=== PATIENT | male | born 2000 | race Caucasian/White ===

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

== ENCOUNTER 2021-05-03 16:31 | Outpatient (REF) | payer OTHER, MEDICAID, SELFPAY ==
[2021-05-03 17:01] LABS: MANUAL DIFF FLAG NO
[2021-05-03 17:28] LABS: Basophils Absolute Auto 0.1 X10*3/uL (0.0-0.2); Basophils Percent Auto 0.5 % (0-2); Eosinophils Percent Auto 0.2 % (0-4); Hematocrit 49.8 % (42-52); Imm Gran Abs Auto 0.01 X10*3/uL (0.00-0.03); Imm Gran Pct Auto 0.1 % (0.0-0.4); Lymphocytes Absolute Auto 2.4 X10*3/uL (1.2-4.9); Mean Corpuscular HGB Conc 34.1 g/dl (31.0-36.0); Mean Corpuscular Hemoglobin 28.8 pg (27.0-33.0); Mean Corpuscular Volume 84.3 fL (80-98); Monocytes Absolute Auto 0.6 X10*3/uL (0.1-1.2); Monocytes Percent Auto 6.1 % (2-11); Neutrophils Absolute Auto 6.8 X10*3/uL (2.0-8.3); Neutrophils Percent Auto 69.1 % (45-73); Platelet Count 346 X10*3/uL (160-400); Red Blood Count 5.91 X10*6/uL (4.60-5.80); Red Cell Distribution Width 11.1 % (11.0-16.0); White Blood Count 9.9 X10*3/uL (4.8-10.8)
[2021-05-03 18:15] LABS: Alanine Aminotransferase 22 U/L (0-40); Albumin Level 5.3 g/dL (3.5-5.0); Alkaline Phosphatase 90 U/L (39-117); Anion Gap 16 (12-20); Aspartate Amino Transferase 23 U/L (5-37); Blood Urea Nitrogen 21 mg/dL (9-16); C Reactive Protein 0.02 mg/dL (< or = 0.50); Calcium 10.8 mg/dL (8.4-10.2); Carbon Dioxide 26 mmol/L (22-29); Chloride 104 mmol/L (96-108); Estimated Glomerular Filt Rate > 60; Glucose Random 80 mg/dL (60-115); Potassium 4.6 mmol/L (3.3-5.1); Sodium 141 mmol/L (135-145)
[2021-05-03 18:23] LABS: Erythrocyte Sedimentation Rate 1 MM/HR (0-15)
[2021-05-03 18:25] LABS: Free T4 (Free Thyroxine) 1.21 ng/dL (0.71-1.85); Thyroid Stimulating Hormone 1.61 uIU/mL (0.32-4.0)
== END 2021-05-03 16:32 | disposition home or self-care (01) ==
LOC: HO.LAB 16:31
PROVIDERS: PCP Pediatrics; Visit Provider Pediatrics
DX: D64.9 Anemia, unspecified (principal)
CPT/HCPCS: 36415; 80053; 84439; 84443; 85025; 85652; 86140

== ENCOUNTER 2021-06-01 12:50 | Emergency (ER) | payer OTHER, MEDICAID, SELFPAY ==
--- NOTE | ~2021-06-01 | CT_ITS ---
EXAMINATION: CT ABDOMEN AND PELVIS WITH CONTRAST CLINICAL INFORMATION: Right lower quadrant abdominal pain COMPARISON: None TECHNIQUE: Multidetector volumetric images were obtained from the superior aspect of the liver through the pubic symphysis following administration 85 mL of Omnipaque 350 intravenous contrast. Sagittal and coronal reformatted images were obtained on the technologist's workstation. Oral contrast: No This CT examination was performed using dose optimization techniques as appropriate, variously including the following: *Automated exposure control *Adjustment of mA and/or kV according to patient size (this includes techniques or standardized protocols for targeted exams where dose is matched to indication/reason for exam; i.e. extremities or head) *Use of iterative reconstruction technique DLP: 330 mGy-cm FINDINGS: LUNG BASES: The visualized lung bases are unremarkable. LIVER, GALLBLADDER, AND BILIARY TREE: The liver is normal in size, shape, and attenuation. No focal hepatic lesion or biliary ductal dilatation is present. The gallbladder is unremarkable with no evidence of radiopaque gallstones, gallbladder wall thickening, or obvious pericholecystic inflammatory changes. PANCREAS: Unremarkable. SPLEEN: Unremarkable. ADRENAL GLANDS: Unremarkable. KIDNEYS AND URETERS: The kidneys are normal in size, shape, and attenuation. No hydronephrosis, hydroureter, or calculi seen. No perinephric stranding. BLADDER: Completely emptying cannot be evaluated. No stones are seen. GASTROINTESTINAL TRACT: Diverticular changes are present in the colon without diverticulitis. The small and large bowel are unremarkable. The appendix is unremarkable. ABDOMINAL WALL: No significant hernia is appreciated. LYMPH NODES: No retroperitoneal lymphadenopathy. VASCULAR: Unremarkable. PELVIC VISCERA: Unremarkable. OSSEOUS STRUCTURES: Unremarkable. CT/CT abdomen pelvis w con IMPRESSION: A cause for the patient's acute right lower quadrant pain has not been found. The appendix appears entirely normal. Colonic diverticula are present without diverticulitis.
[2021-06-01 12:55] VITALS: BP 143/81; PULSE 72; O2SAT 99
[2021-06-01 13:48] VITALS: BP 155/70; PULSE 67; RESP 18; TEMP 36.6; O2SAT 98; BMI 17.7
[2021-06-01 14:00] LABS: MANUAL DIFF FLAG NO
[2021-06-01 14:05] LABS: Basophils Percent Auto 0.4 % (0-2); Eosinophils Percent Auto 0.4 % (0-4); Hematocrit 45.6 % (42.0-52.0); Hemoglobin 15.2 g/dl (14.0-18.0); Imm Gran Abs Auto 0.01 X10*3/uL (0.00-0.03); Imm Gran Pct Auto 0.1 % (0.0-0.4); Lymphocytes Absolute Auto 1.7 X10*3/uL (1.2-4.9); Lymphocytes Percent Auto 17.9 % (20-40); Mean Corpuscular HGB Conc 33.3 g/dl (31.0-36.0); Mean Corpuscular Volume 86.9 fL (80.0-98.0); Mean Platelet Volume 8.5 fL (9.4-12.4); Monocytes Absolute Auto 0.7 X10*3/uL (0.1-1.2); Monocytes Percent Auto 7.2 % (2-11); Neutrophils Absolute Auto 6.9 x10*3/uL (2.0-8.3); Platelet Count 270 X10*3/uL (160-400); Red Blood Count 5.25 X10*6/uL (4.60-5.80); Red Cell Distribution Width 11.6 % (11.0-16.0); White Blood Count 9.3 X10*3/uL (4.8-10.8)
[2021-06-01 14:25] LABS: Alanine Aminotransferase 20 U/L (0-40); Albumin Level 4.8 g/dL (3.5-5.0); Alkaline Phosphatase 73 U/L (39-117); Anion Gap 13 (12-20); Aspartate Amino Transferase 19 U/L (5-37); Bilirubin Total 0.9 mg/dL (0.0-1.0); Blood Urea Nitrogen 19 mg/dL (9-16); Carbon Dioxide 25 mmol/L (22-29); Chloride 106 mmol/L (96-108); Creatinine Clr Calc Pharmacy 91.4; Estimated Glomerular Filt Rate > 60; Glucose Random 96 mg/dL (60-115); Lipase 39 U/L (8-78); Potassium 3.9 mmol/L (3.3-5.1); Sodium 140 mmol/L (135-145); Total Protein 7.4 g/dL (6.5-8.0)
[2021-06-01 16:42] VITALS: BP 136/74; PULSE 70; RESP 16; TEMP 36.6; O2SAT 97
--- NOTE | 2021-06-01 18:36 | ED.ABDPAIN ---
HPI - Abdominal Pain General Chief Complaint: Abdominal Pain Stated Complaint: RLQ PAIN Time Seen by Provider: 06/01/21 12:55 Source: patient Mode of arrival: ambulatory Limitations: no limitations History of Present Illness HPI narrative: RT lower quadrant abdominal pain since Yesterday,denies vomiting and diarrhea MD elicited complaint: abdominal pain Pertinent past history: none Onset (ago): day(s) (1) Pain Consistency: constant Location: RLQ Severity: moderate Quality: cramping Radiation: none Migration to: no migration Associated symptoms: denies other symptoms Related Data Allergies Allergy/AdvReac Type Severity Reaction Status Date / Time No Known Allergies Allergy Verified 06/01/21 18:39 Review of Systems Review of Systems Yes all other systems are reviewed and are negative Constitutional: Reports no additional constitutional complaints Reports system reviewed and no additional complaints, except as documented Cardiovascular: Reports no additional cardiovascular complaints Respiratory: Reports no additional respiratory complaints Gastrointestinal: Denies hematochezia, Denies constipation, Denies diarrhea and Denies loose stools Physical Exam Vital Signs: Vital Signs: Last Vital Signs Temp 99.6 F 06/01/21 18:41 Pulse 151 H 06/01/21 18:41 Resp 34 H 06/01/21 18:41 BP 120/78 06/01/21 18:41 Pulse Ox 98 06/01/21 18:41 Body Mass Index 17.7 Const: General: cooperative, well developed, alert and awake Nutritional Appearance: average body habitus Orientation/consciousness: patient oriented x3 HENMT: Head: Yes normal to inspection Face and sinus: Yes normal facial exam Mouth: Normal oral and palatal mucosa present Throat: Yes posterior oropharynx normal Neck: Neck: Yes normal visual inspection, Yes full ROM and Yes no lymphadenopathy Chest: Chest palpation & inspection: normal inspection of the chest Resp: Effort & Inspection: normal respiratory effort Auscultation: clear to auscultation bilaterally Cardio: Jugular venous distension: no JVD Rate: regular rate Rhythm: regular rhythm GI: Inspection: Yes normal to inspection Palpation (GI): Soft to palpation, not firm, Tenderness to palpation present (GI) in the RLQ and no guarding Skin: General skin exam: no rashes or lesions noted, elasticity normal and turgor normal Rashes: no rashes Wounds: no wounds Neuro: General: patient oriented x3 Cranial nerves: Yes CN's II-XII intact bilaterally Course Reevaluation(s) Reevaluation #1: feels much better ct scan negative OK to d/c home MDM - Abdominal Pain Lab Data Result diagrams: 06/01/21 13:53 06/01/21 13:53 Labs: Lab Results 06/01/21 06/01/21 06/01/21 Range/Units 13:53 13:53 19:15 WBC 9.3 (4.8-10.8) X10*3/uL RBC 5.25 (4.60-5.80) X10*6/uL Hgb 15.2 (14.0-18.0) g/dl Hct 45.6 (42.0-52.0) % MCV 86.9 (80.0-98.0) fL MCH 29.0 (27.0-33.0) pg MCHC 33.3 (31.0-36.0) g/dl RDW 11.6 (11.0-16.0) % Plt Count 270 (160-400) X10*3/uL MPV 8.5 L (9.4-12.4) fL Immature Gran % (Auto) 0.1 (0.0-0.4) % Neut % (Auto) 74.0 H (45-73) % Lymph % (Auto) 17.9 L (20-40) % [place] % (Auto) 7.2 (2-11) % Eos % (Auto) 0.4 (0-4) % Baso % (Auto) 0.4 (0-2) % Lymph # (Auto) 1.7 (1.2-4.9) X10*3/uL [place] # (Auto) 0.7 (0.1-1.2) X10*3/uL Eos # (Auto) 0.0 (0.0-0.4) X10*3/uL Baso # (Auto) 0.0 (0.0-0.2) X10*3/uL Abs Immat Gran (auto) 0.01 (0.00-0.03) X10*3/uL Absolute Neuts (auto) 6.9 (2.0-8.3) x10*3/uL Absolute Nucleated RBC 0.000 (0.0-0.012) X10*3/uL Nucleated RBC % (auto) 0.0 (0.0-0.2) /100WBC Sodium 140 (135-145) mmol/L Potassium 3.9 (3.3-5.1) mmol/L Chloride 106 (96-108) mmol/L Carbon Dioxide 25 (22-29) mmol/L Anion Gap 13 (12-20) BUN 19 H (9-16) mg/dL Creatinine 1.00 (0.5-1.4) mg/dL Estim Creat Clear Calc 91.4 Estimated GFR > 60 Random Glucose 96 (60-115) mg/dL Calcium 10.0 D (8.4-10.2) mg/dL Total Bilirubin 0.9 (0.0-1.0) mg/dL AST 19 (5-37) U/L ALT 20 (0-40) U/L Alkaline Phosphatase 73 (39-117) U/L Total Protein 7.4 (6.5-8.0) g/dL Albumin 4.8 (3.5-5.0) g/dL Lipase 39 (8-78) U/L Urine Color YELLOW Urine Appearance CLEAR Urine pH 7.0 (5.0-8.0) Ur Specific [place] 1.020 (1.005-1.025) Urine Protein NEG (NEG-TRACE) MG/DL Urine Glucose (UA) NEG (NEG) MG/DL Urine Ketones 15 (NEG) MG/DL Urine Blood NEG (NEG) Urine Nitrite NEG (NEG) Ur Leukocyte Esterase NEG (NEG) Imaging Data CT scan - abdomen: Attestation: I personally reviewed and interpreted this imaging study as follows: Radiologist's impression: stones are seen.? GASTROINTESTINAL TRACT: Diverticular changes are present in the colon without diverticulitis. The small and large bowel are unremarkable. The appendix is unremarkable.? ABDOMINAL WALL: No significant hernia is appreciated.? LYMPH NODES: No retroperitoneal lymphadenopathy. VASCULAR: Unremarkable. PELVIC VISCERA: Unremarkable.? OSSEOUS STRUCTURES: Unremarkable.? CT/CT abdomen pelvis w con IMPRESSION: A cause for the patient's acute right lower quadrant pain has not been found. The appendix appears entirely normal. Colonic diverticula are present without diverticulitis.? Dictated By: FABIO IRVING MD Signed By: <Electronically signed by FABIO IRVING MD in OV> 06/01/212009 Discharge Plan Discharge Clinical Impression: Abdominal pain Patient Disposition: Home, Self-Care Instructions: Abdominal Pain (ED) PMFSH Social History Social History Advance Directives: No Advance Directives Information Provided: No
[2021-06-01 18:41] VITALS: BP 120/78; PULSE 151; RESP 34; TEMP 37.6; O2SAT 98
--- NOTE | 2021-06-01 19:24 | PC.NURSE ---
PT HAD EPISODE OF ANXIETY AFTER SPEAKING WITH MD. PT WAS INSTRUCTED TO BREATH THREW NOSE OUT THREW MOUTH ICE PACK TO BACK OF NECK AND ANXIETY RESOLVE. PT STATE HE HAS ALOT
[2021-06-01 19:25] LABS: Appearance Urine CLEAR; Color Urine YELLOW; Glucose Urine UA NEG (NEG); Leukocyte Esterase Urine NEG (NEG); Nitrite Urine NEG (NEG); Urine Blood NEG (NEG); Urine Ketones 15 MG/DL (NEG); Urine Protein NEG (NEG-TRACE)
[2021-06-01] MEDS: iohexoL 350 MG/ML 100 ML INFUS..BTL IV (19:29)
[2021-06-01] MEDS: 0.9 % Sodium Chloride 1,000 ML 999 ML IVCONT (19:42)
[2021-06-01] MEDS: Ketorolac Tromethamine 15 MG/ML VIAL IVPUSH (19:42)
== END 2021-06-01 20:34 | disposition home or self-care (01) ==
PROVIDERS: Emergency Medicine; Emergency Provider Emergency Medicine; PCP Pediatrics
DX: R10.31 Right lower quadrant pain (principal); Z79.899 Other long term (current) drug therapy
CPT/HCPCS: 36415; 74177; 80053; 81003; 83690; 85025; 96361; 96374; 99284; J1885; Q9967

== ENCOUNTER 2021-06-15 15:17 | Emergency (ER) | payer OTHER, MEDICAID, SELFPAY ==
--- NOTE | 2021-06-15 | ECG_ITS ---
Test Reason : ANXIETY Blood Pressure : / mmHG Vent. Rate : 110 BPM Atrial Rate : 110 BPM P-R Int : 120 ms QRS Dur : 098 ms QT Int : 314 ms P-R-T Axes : 076 082 057 degrees QTc Int : 424 ms Sinus tachycardia Right atrial enlargement Borderline ECG No previous ECGs available Referred By: Generic ED Physician Electronically Signed By:AMRIK LEARY MD
--- NOTE | ~2021-06-15 | XR_ITS ---
EXAMINATION: XR CHEST CLINICAL INFORMATION: Chest pain COMPARISON: None TECHNIQUE: 2 views of the chest were obtained. FINDINGS: The cardiac and mediastinal contours are normal. The lungs are well inflated. The lungs are clear. There is no pleural effusion or pneumothorax. Bony structures are unremarkable. XR/XR chest 2V IMPRESSION: Well-inflated lungs. No evidence for acute disease in the chest.
[2021-06-15 15:31] VITALS: BP 177/109; PULSE 120; RESP 18; TEMP 37.3; O2SAT 95; BMI 17.7
[2021-06-15 15:52] LABS: MANUAL DIFF FLAG NO
[2021-06-15 15:53] LABS: Basophils Percent Auto 0.4 % (0-2); Eosinophils Percent Auto 0.4 % (0-4); Hematocrit 45.7 % (42.0-52.0); Hemoglobin 15.7 g/dl (14.0-18.0); Imm Gran Abs Auto 0.01 X10*3/uL (0.00-0.03); Imm Gran Pct Auto 0.1 % (0.0-0.4); Lymphocytes Absolute Auto 2.4 X10*3/uL (1.2-4.9); Lymphocytes Percent Auto 29.2 % (20-40); Mean Corpuscular HGB Conc 34.4 g/dl (31.0-36.0); Mean Corpuscular Hemoglobin 28.9 pg (27.0-33.0); Mean Platelet Volume 8.6 fL (9.4-12.4); Monocytes Absolute Auto 0.6 X10*3/uL (0.1-1.2); Monocytes Percent Auto 6.8 % (2-11); Neutrophils Absolute Auto 5.2 x10*3/uL (2.0-8.3); Neutrophils Percent Auto 63.1 % (45-73); Platelet Count 345 X10*3/uL (160-400); Red Blood Count 5.44 X10*6/uL (4.60-5.80); Red Cell Distribution Width 11.5 % (11.0-16.0); White Blood Count 8.3 X10*3/uL (4.8-10.8)
[2021-06-15 16:11] LABS: Prothrombin Time 11.5 SEC (9.9-13.0)
[2021-06-15 16:13] LABS: Partial Thromboplastin Time 29.4 SEC (24.1-38.0)
[2021-06-15 16:14] LABS: D Dimer High Sensitivity < 150 NG/ML
[2021-06-15 16:15] LABS: COVID-19 Test Negative (Negative)
[2021-06-15 16:16] LABS: Troponin-I High Sensitivity < 3.5 ng/L (<3.5-35.0)
[2021-06-15 16:17] LABS: Anion Gap 20 (12-20); Blood Urea Nitrogen 18 mg/dL (9-16); Calcium 10.7 mg/dL (8.4-10.2); Carbon Dioxide 18 mmol/L (22-29); Chloride 104 mmol/L (96-108); Creatinine Clr Calc Pharmacy 81.6; Estimated Glomerular Filt Rate > 60; Glucose Random 132 mg/dL (60-115); Potassium 3.7 mmol/L (3.3-5.1); Sodium 138 mmol/L (135-145)
--- NOTE | 2021-06-15 18:14 | ED_ITS ---
HPI - Chest Pain General Chief Complaint: Chest Pain Stated Complaint: chest pain, diff breath Time Seen by Provider: 06/15/21 18:14 Source: patient Mode of arrival: ambulatory History of Present Illness HPI narrative: 20-year-old male who presents emergency department for evaluation of left-sided pleuritic chest pain. The patient states that the pain started yesterday. He states that the pain came on suddenly. The pain is intermittent. He describes the pain as a sharp pain and he points to his left anterior chest when asked to localize the pain. The pain is worse with breathing worse with lying down flat. States that the pain is 8/10 at its worst and is currently 2/10 here in the emergency department. Patient states that he has had rhinorrhea and a cough which is occasionally productive of green mucus. He states he is feeling weak and fatigued. He denied shortness of breath or dyspnea on exertion. The patient did not take any medications for the pain prior to coming to the emergency department. Patient also states that he has severe anxiety and he believes that the chest pain is making very anxious. Related Data Allergies Allergy/AdvReac Type Severity Reaction Status Date / Time No Known Allergies Allergy Verified 06/15/21 15:31 Review of Systems Review of Systems: Yes all other systems are reviewed and are negative [facility] Past Medical History [facility] Narrative: Past medical history: Asthma, anxiety and anemia. Past surgical history: None. Social history: He denies tobacco and alcohol use. He occasionally smokes marijuana. Social History Social History Advance Directives: No Advance Directives Information Provided: No Physical Exam Vital Signs: Vital Signs: Last Vital Signs Temp 98.3 F 06/15/21 18:20 Pulse 108 H 06/15/21 18:20 Resp 30 H 06/15/21 18:20 BP 137/72 06/15/21 18:20 Pulse Ox 100 06/15/21 18:20 Body Mass Index 17.7 Const: General: cooperative and no acute distress Orientation/consciousness: oriented to person and oriented to place Limitations: no limitations HENMT: Head: Yes normal to inspection, Yes normocephalic and Yes atraumatic Ears: external ears normal General nose exam: Normal external nose present Face and sinus: Yes normal facial exam Mouth: Normal oral and palatal mucosa present Throat: Yes posterior oropharynx normal Eyes: General: appearance normal, both eyes and all related structures Pupils: Equal, round and reactive pupils present Neck: Neck: Yes normal visual inspection, Yes no lymphadenopathy, Yes trachea midline and Yes supple Chest: Chest palpation & inspection: normal inspection of the chest and normal palpation of entire chest wall Resp: Effort & Inspection: normal respiratory effort and able to speak in complete sentences Auscultation: clear to auscultation bilaterally Cardio: Rate: regular rate Rhythm: regular rhythm Heart sounds: S1 normal heart sound present, S2 normal heart sound present and no murmurs GI: Inspection: Yes normal to inspection Palpation (GI): Soft to palpation, nontender and no guarding Auscultation: normal bowel sounds : General: Yes no CVA tenderness Back/Spine/Pelvis: Back: no CVA tenderness Skin: General skin exam: no rashes or lesions noted Neuro: General: oriented to person and oriented to place Cranial nerves: Yes CN's II-XII intact bilaterally and Yes Equal, round and reactive pupils present Cognition (Neuro): normal cognition Motor exam (neuro): 5/5 motor strength present throughout Extrem: General: Yes normal to inspection Psych: Appearance: grossly normal Speech and movement: Normal speech and movement present Affect: normal affect Attitude: cooperative Thought process: Normal thought process present Thought content: Normal thought content present Course Course Course Narrative: 20-year-old male who presents emergency department for evaluation of left-sided pleuritic chest pain. Initial vital signs revealed an elevated blood pressure of 177/109, repeat blood pressure was 137/72. Patient was initially tachycardic with a pulse of 120. Had a normal respiratory rate of 18. O2 saturation was 95% on room air. Physical examination was unremarkable. The patient had a 12 EKG which revealed a sinus tachycardia with no evidence for pericarditis or myocardial injury. The patient's CBC was normal. CMP revealed a slight elevated glucose of 132. Troponin was below detectable limits. D- dimer was below detectable limits. Chest x-ray was negative. COVID-19 was negative. Patient's presentation is consistent with acute pleurisy most likely caused by viral illness I did discuss this with him. Patient was treated with ibuprofen 600 mg orally. He was advised to take ibuprofen and Tylenol for the next 3 days. He was given printed and verbal instructions and discharged home. MDM - Chest Pain Lab Data Result diagrams: 11/30/21 15:46 06/15/21 15:45 Labs: Lab Results 06/15/21 06/15/21 06/15/21 Range/Units 15:45 15:45 15:45 WBC (4.8-10.8) X10*3/uL RBC (4.60-5.80) X10*6/uL Hgb (14.0-18.0) g/dl Hct (42.0-52.0) % MCV (80.0-98.0) fL MCH (27.0-33.0) pg MCHC (31.0-36.0) g/dl RDW (11.0-16.0) % Plt Count (160-400) X10*3/uL MPV (9.4-12.4) fL Immature Gran % (Auto) (0.0-0.4) % Neut % (Auto) (45-73) % Lymph % (Auto) (20-40) % [place] % (Auto) (2-11) % Eos % (Auto) (0-4) % Baso % (Auto) (0-2) % Lymph # (Auto) (1.2-4.9) X10*3/uL [place] # (Auto) (0.1-1.2) X10*3/uL Eos # (Auto) (0.0-0.4) X10*3/uL Baso # (Auto) (0.0-0.2) X10*3/uL Abs Immat Gran (auto) (0.00-0.03) X10*3/uL Absolute Neuts (auto) (2.0-8.3) x10*3/uL Absolute Nucleated RBC (0.0-0.012) X10*3/uL Nucleated RBC % (auto) (0.0-0.2) /100WBC PT 11.5 (9.9-13.0) SEC INR 1.0 (0.9-1.1) APTT 29.4 (24.1-38.0) SEC D-Dimer High Sensitivty < 150 NG/ML Sodium 138 (135-145) mmol/L Potassium 3.7 (3.3-5.1) mmol/L Chloride 104 (96-108) mmol/L Carbon Dioxide 18 L (22-29) mmol/L Anion Gap 20 (12-20) BUN 18 H (9-16) mg/dL Creatinine 1.12 (0.5-1.4) mg/dL Estim Creat Clear Calc 81.6 Estimated GFR > 60 Random Glucose 132 H D (60-115) mg/dL Calcium 10.7 H D (8.4-10.2) mg/dL Troponin I High Sens (<3.5-35.0) ng/L COVID-19 ([facility]) (Negative) COVID-19 Clin Com 06/15/21 06/15/21 06/15/21 Range/Units 15:45 15:46 15:46 WBC 8.3 (4.8-10.8) X10*3/uL RBC 5.44 (4.60-5.80) X10*6/uL Hgb 15.7 (14.0-18.0) g/dl Hct 45.7 (42.0-52.0) % MCV 84.0 (80.0-98.0) fL MCH 28.9 (27.0-33.0) pg MCHC 34.4 (31.0-36.0) g/dl RDW 11.5 (11.0-16.0) % Plt Count 345 D (160-400) X10*3/uL MPV 8.6 L (9.4-12.4) fL Immature Gran % (Auto) 0.1 (0.0-0.4) % Neut % (Auto) 63.1 (45-73) % Lymph % (Auto) 29.2 (20-40) % [place] % (Auto) 6.8 (2-11) % Eos % (Auto) 0.4 (0-4) % Baso % (Auto) 0.4 (0-2) % Lymph # (Auto) 2.4 (1.2-4.9) X10*3/uL [place] # (Auto) 0.6 (0.1-1.2) X10*3/uL Eos # (Auto) 0.0 (0.0-0.4) X10*3/uL Baso # (Auto) 0.0 (0.0-0.2) X10*3/uL Abs Immat Gran (auto) 0.01 (0.00-0.03) X10*3/uL Absolute Neuts (auto) 5.2 (2.0-8.3) x10*3/uL Absolute Nucleated RBC 0.000 (0.0-0.012) X10*3/uL Nucleated RBC % (auto) 0.0 (0.0-0.2) /100WBC PT (9.9-13.0) SEC INR (0.9-1.1) APTT (24.1-38.0) SEC D-Dimer High Sensitivty NG/ML Sodium (135-145) mmol/L Potassium (3.3-5.1) mmol/L Chloride (96-108) mmol/L Carbon Dioxide (22-29) mmol/L Anion Gap (12-20) BUN (9-16) mg/dL Creatinine (0.5-1.4) mg/dL Estim Creat Clear Calc Estimated GFR Random Glucose (60-115) mg/dL Calcium (8.4-10.2) mg/dL Troponin I High Sens < 3.5 (<3.5-35.0) ng/L COVID-19 ([facility]) Negative (Negative) COVID-19 Clin Com See Note Discharge Plan Discharge Clinical Impression: Pleurisy Patient Disposition: Home, Self-Care Instructions: Pleurisy (ED) Additional Instructions: Your laboratory evaluation was normal which is reassuring Your chest x-ray was unremarkable. Your 12 EKG was normal. Your symptoms and presentation is consistent with pleurisy which is inflammation of the lining of the lung. The treatment for pleurisy is to take anti-inflammatory medications for the next 4 days. Take ibuprofen 200 mg pills, 3 pills every 6 hours for 4 days then as needed for pain Take Tylenol (acetaminophen) 500 mg pills, 2 pills every 4 to 6 hours as needed for pain. Follow-up with your doctor in 2 days. Please return to the emergency department if your symptoms get worse or if you develop any symptoms that are concerning to you.
[2021-06-15 18:20] VITALS: BP 137/72; PULSE 108; RESP 30; TEMP 36.8; O2SAT 100
[2021-06-15] MEDS: Ibuprofen 600 MG TABLET PO (18:47)
[2021-06-15 19:17] VITALS: BP 127/78; PULSE 68; RESP 16; O2SAT 98
--- NOTE | 2021-06-16 09:05 | ECG_ITS ---
Test Reason : ANXIETY Blood Pressure : / mmHG Vent. Rate : 118 BPM Atrial Rate : 118 BPM P-R Int : 128 ms QRS Dur : 094 ms QT Int : 298 ms P-R-T Axes : 079 084 062 degrees QTc Int : 417 ms Sinus tachycardia Right atrial enlargement Abnormal ECG When compared with ECG of 15-JUN-2021 15:28, No significant change was found Referred By: Garfield Serna Electronically Signed By:MELINDA MANRIQUE
== END 2021-06-15 19:19 | disposition home or self-care (01) ==
PROVIDERS: Emergency Provider Emergency Medicine Emergency Medical Services; PCP Pediatrics
DX: R09.1 Pleurisy (principal); Z20.822 Contact with and (suspected) exposure to COVID-19; R53.83 Other fatigue
CPT/HCPCS: 36415; 71046; 80048; 84484; 85025; 85379; 85610; 85730; 87635; 93005; 99284

== ENCOUNTER 2024-06-04 10:42 | Outpatient (REF) | payer OTHER, MEDICAID, SELFPAY ==
[2024-06-04 14:18] LABS: MANUAL DIFF FLAG NO
[2024-06-04 14:43] LABS: Basophils Percent Auto 0.8 % (0-2); Eosinophils Absolute Auto 0.1 X10*3/uL (0.0-0.4); Eosinophils Percent Auto 2.2 % (0-4); Hematocrit 46.6 % (42.0-52.0); Hemoglobin 15.4 g/dl (14.0-18.0); Imm Gran Abs Auto 0.01 X10*3/uL (0.00-0.03); Imm Gran Pct Auto 0.2 % (0.0-0.4); Lymphocytes Absolute Auto 2.5 X10*3/uL (1.2-4.9); Lymphocytes Percent Auto 49.1 % (20-40); Mean Corpuscular Hemoglobin 29.1 pg (27.0-33.0); Mean Corpuscular Volume 88.1 fL (80.0-98.0); Mean Platelet Volume 8.9 fL (9.4-12.4); Monocytes Absolute Auto 0.5 X10*3/uL (0.1-1.2); Monocytes Percent Auto 9.4 % (2-11); Neutrophils Absolute Auto 1.9 x10*3/uL (2.0-8.3); Neutrophils Percent Auto 38.3 % (45-73); Platelet Count 281 X10*3/uL (160-400); Red Blood Count 5.29 X10*6/uL (4.60-5.80); Red Cell Distribution Width 11.7 % (11.0-16.0)
[2024-06-04 16:30] LABS: Alanine Aminotransferase 27 U/L (0-40); Albumin Level 4.5 g/dL (3.5-5.0); Anion Gap 13 (12-20); Aspartate Amino Transferase 26 U/L (5-37); Bilirubin Total 0.6 mg/dL (0.0-1.0); Blood Urea Nitrogen 12 mg/dL (9-16); Calcium 9.9 mg/dL (8.4-10.2); Carbon Dioxide 28 mmol/L (22-29); Chloride 104 mmol/L (96-108); Cholesterol 184 mg/dL (<200); Estimated Glomerular Filt Rate > 60; Glucose Random 87 mg/dL (60-115); HDL Cholesterol 51 mg/dL (>40); LDL Cholesterol Calculated 112 mg/dL (<100); Potassium 4.1 mmol/L (3.3-5.1); Sodium 141 mmol/L (135-145); TSH reflex Free T4 1.37 uIU/mL (0.32-4.0); Total Protein 6.8 g/dL (6.5-8.0); Triglycerides 105 mg/dL (<150)
[2024-06-04 17:27] LABS: Alkaline Phosphatase 59 U/L (39-117)
== END 2024-06-04 10:43 | disposition home or self-care (01) ==
LOC: HO.CHCLDS 10:42
PROVIDERS: Visit Provider Internal Medicine
DX: R63.6 Underweight (principal); Z68.1 Body mass index [BMI] 19.9 or less, adult
CPT/HCPCS: 36415; 80053; 80061; 84443; 85025

== ENCOUNTER 2024-09-27 14:03 | Outpatient (REF) | payer OTHER, SELFPAY ==
[2024-09-27 15:43] LABS: Anion Gap 11 (12-20); Blood Urea Nitrogen 18 mg/dL (9-16); Calcium 10.1 mg/dL (8.4-10.2); Carbon Dioxide 28 mmol/L (22-29); Chloride 106 mmol/L (96-108); Estimated Glomerular Filt Rate > 60; Glucose Random 79 mg/dL (60-115); Potassium 3.4 mmol/L (3.3-5.1); Sodium 142 mmol/L (135-145)
--- OUTSIDE RECORDS SUMMARY | 2024-09-27 15:43 | XMS_ITS | Encounter Summary ---
Author Organization [employer] Address [address] [place] [address] Care Team Providers Care Mill Washer Name Role Phone Haile Zavaleta MD Primary Care Prov ider Reason for Visit * Reason Onset Date Comments Nurse Triage 09/19/2024 Encounter Details Date Type Department Care Team (Late st Contact Info) Description 09/19/2024 Telephone [facility] [address] [place] [address] Haile Zavaleta MD [address] [place] [address] Nurse Triage Social History Tobacco Use Types Packs/Day Years Used Date Smoking Tobacco: Never Smokeless Tobacco: Current Snuff Alcohol Use Standard Drinks/Week Comments Never 0 (1 standard drink = 0.6 oz pur e alcohol) Depression Answer Date Recorded Patient Health Questionnaire-9 Score 0 05/07/2024 Patient Health Questionnaire-9 Score 0 05/07/2024 Last PHQ-9: Questionnaire Data Not on file 1 Housing Stability Answer Date Recorded What is your housing situation today? I have rosio lloyd 04/30/[address] you li ve. Do you have problems with any of the following? None of the above 04/30/2024 Food Insecurity Answer Date Recorded Within the past 12 months, y ou worried that your food would run out before you got money to buy more: Never True 04/30/2024 Within the past 12 months,th e food you bought just didn't last and you didn't have enough money to get more: Never True Transportation Answer Date Recorded In the past 12 months, has l ack of transportation kept you from medical appts, meetings, work or from getting things needed for daily living? No 04/30/2024 Utilities Answer Date Recorded In the past 12 months, has t he electric, gas, oil or water company threatened to shut off services in your home? No 04/30/2024 Depression Answer Date Recorded Patient Health Questionnaire-2 Score 0 05/07/2024 Internet Access Answer Date Recorded Internet Access Q1 Yes 04/30/2024 Internet Access Q2 Not on file 04/30/2024 Sex and Gender Information Value Date Recorded Sex Assigned at Male 03/31/2023 5:27 PM EDT Legal Sex Female 4:18 PM EDT Gender Identity Male 03/31/2023 5:27 PM EDT Sexual Orientation Straight 04/11/2023 8: 52 AM EDT documented as of this encounter Miscellaneous Notes * Telephone Encounter - Kasie De Guzman RN - 09/20/2024 10:21 AM EST Images from the original note were not included. Call returend to Andrey Palacios, denies any worsening pain. No N/V or diarrhea. No redness, rash or swelling at site. Still denies any urinary issues. Pt offered appt for today states at work. Only available Monday or Monday. Booked for Monday with [facility] provider who had blank open slot. Reviewed home care advise, ER precautions and reasons to call back. Future Appointments Date Time Provider Department Center 09/23/2024 11:30 AM [facility] Trevino [facility] Insurance verified as active per Real Time Eligibility in [facility]. * Telephone Encounter - Diane Church - 09/20/2024 9:43 AM EST Tc from pt returning call regarding scheduling an appt . Inform is still having symptoms. * Telephone Encounter - Hoa Broderick LPN - 09/19/2024 2:47 PM EST Triage call placed to patient. Previous triage in notes from 09/16/24 did not seek [facility] evaluation. Continues with reported tightening feeling below ribs right side in his back no recent injury reports full mobility no sensation of muscle spasm no urinary pain. Reports voiding well with large volumes. Pain exacerbated only by laying down. No PCP or team appts at this time. Advised to call early Monday AM for afternoon TXC schedule availability. Provided [facility] hours for tomorrow as needed. Again advised to seek [facility] evaluation as needed with current insurance coverage. Disposition reviewed with patient in agreement with plan. No PCP or Team appts. Available at time of call. [facility] hours and availability provided for patient evaluation. Triage nurse informed the patient may have a wait of 1-2 hours because [facility] may have delays due to patient volume or symptom acuity. Insurance verified as active. Protocol Used: Flank Pain (Adult) Protocol-Based Disposition: See in Office or Video Visit within 3 Days Override (Final) Disposition: Go to Urgent Care Now Override Reason: No appointments available Positive Triage Question: * Mild pain (i.e., scale 1-3; does not interfere with normal activities) and present > 3 days * All higher-acuity triage questions were negative Care Advice Discussed: * Reasons To Call Back - Burning with urination or blood in urine - You become worse * Telephone Encounter - Seth Zelaya - 09/19/2024 2:32 PM EST Symptoms: Back Pain - Not From Injury, Hip Pain - Not From Injury Outcome: Schedule an appointment to be seen within 24 hours Reason: Caller denied all higher acuity questions The caller accepted this outcome. Contact pt at [phone] documented in this encounter Plan of Treatment Upcoming Encounters Date Type Department Care Team (Late st Contact Info) Description 10/25/2024 8:30 AM EDT Telemedicine [facility] [address] [place] [address] Haile Zavaleta MD [address] [place] [address] documented as of this encounter Visit Diagnoses Not on filedocumented in this encounter Additional Health Concerns Assessment Noted Time PHQ-9 Depression Total Score: 0 05/07/20 24 2:29 PM EDT documented as of this encounter Care Teams Mill Washer Relationship Specialty Start Date End Date Haile Zavaleta MD [address] [place] [id number] PCP - General Internal Medicine 04/11/23 documented as of this encounter
--- OUTSIDE RECORDS SUMMARY | 2024-09-27 15:43 | XMS_ITS | Encounter Summary ---
Author Organization [email or web address] Address [address] [facility] 7t [place] [address] Care Team Providers Care Certified Hyperbaric Technician Name Role Phone Haile Zavaleta MD Primary Care Prov ider Reason for Visit * Reason Onset Date Comments Nurse Triage 09/16/2024 Encounter Details Date Type Department Care Team (Late st Contact Info) Description 09/16/2024 Telephone [facility] [address] [place], [place] [phone] Haile Zavaleta MD [address] [place] [address] Nurse Triage Social History Tobacco Use Types [...] encounter Miscellaneous Notes * Telephone Encounter - Hoa Broderick LPN - 09/16/2024 10:50 AM EST Triage call returned to patient who reports that he has had a tightening type of pain in the rightmid abdomen Patient identifies that it is right sided and more to the back. Is voiding well large volumes no blood or pus noted. No fever no nausea or vomiting. No recent lifting or twisting injury.Has upright posture and reports tightening ' comes and goes and improves a bit laying on his left s mimi. Disposition reviewed with patient in agreement with plan. No PCP or Team appts. Available at time of call. [facility] hours and availability provided for patient evaluation. Triage nurseinformed the patient may have a wait of 1-2 hours because Walk In Clinic may have delays due to patient volume or symptom acuity. Insurance verified as active. Protocol Used: Abdominal Pain - Male (Adult) Protocol-Based Disposition: See in Office or Video Visit Today Video visit offer not recorded Positive Triage Questions: * Moderate pain (e.g., interferes with normal activities) that comes and goes (cramps) lasts > 24 hours (Exception: Pain with Vomiting or Diarrhea - see that Protocol.) * Patient wants to be seen * All higher-acuity triage questions were negative Care Advice Discussed: * Reasons To Call Back - Severe pain lasts over 1 hour - Constant pain lasts over 2 hours - Intermittent pains (comes and goes, cramps) lasts over 48 hours - You become worse * Telephone Encounter - Diane Church - 09/16/2024 10:29 AM EST Symptom: Abdominal Pain - Male Outcome: Schedule an appointment to be seen within 24 hours Reason: Caller denied all higher acuity questions The caller accepted this outcome. documented in this encounter Plan of Treatment Upcoming Encounters Date Type Department Care Team (Late st Contact Info) Description 10/25/2024 8:30 AM EDT Telemedicine [facility] MED & PEDS [address] [place] [address] Haile Zavaleta MD [address] [place] [address] documented as of this encounter Visit Diagnoses Not on filedocumented in this encounter Additional Health Concerns Assessment Noted Time PHQ-9 Depression Total Score: 0 05/07/20 24 2:29 PM EDT documented as of this encounter Care Teams Certified Hyperbaric Technician Relationship Specialty Start Date End Date Haile Zavaleta MD [address] [place] [address] PCP - General Internal Medicine 04/11/23 documented as of this encounter
--- OUTSIDE RECORDS SUMMARY | 2024-09-27 15:43 | XMS_ITS | Encounter Summary ---
Author Organization [employer] Address 75 [facility] 7t [place] [address] Care Team Providers Care Debt And Budget Counselor Name Role Phone Haile Zavaleta MD Primary Care Prov ider Reason for Visit * Reason Onset Date Comments New patient 03/31/2023 Encounter Details Date Type Department Care Team (Late Contact Info) Description 03/31/2023 Telephone [facility] MEDICINE [address] [place] [address] Nas Hopper MD [address] [place] [address] New patient Social History Tobacco Use Types Packs/Day Years Used Date Smoking Tobacco: Never Assessed Sex and Gender Information Value Date Recorded Sex Assigned at Male 03/31/2023 5:27 PM EDT Legal Sex Female 4:18 PM EDT Gender Identity Male 03/31/2023 5:27 PM EDT Sexual Orientation Straight 04/11/2023 8: 52 AM EDT documented as of this encounter Miscellaneous Notes * Telephone Encounter - Missy Ellison - 03/31/2023 4:21 PM EDT PAR Missy Preciado called pt to Offer PURCHASING AND FISCAL CLERK appt. Pt demographics and insurance information were verified. Pt reports the following medical conditions: Anxiety Pt is currently taking medication: No Pt given PURCHASING AND FISCAL CLERK appt with Dr. Dacosta on 04/11/2023 @ 9 am. Pt will be sent appt reminder card and medical release form and agrees to complete and to return to medical records prior to PURCHASING AND FISCAL CLERK appt. documented in this encounter Plan of Treatment Upcoming Encounters Date Type Department Care Team (Late st Contact Info) Description 10/25/2024 8:30 AM EDT Telemedicine [facility] MED & PEDS [address] [place] [address] Haile Zavaleta MD [address] [place] [address] documented as of this encounter Visit Diagnoses Not on filedocumented in this encounter Care Teams Debt And Budget Counselor Relationship Specialty Start Date End Date Haile Zavaleta MD [address] [place] [address] PCP - General Internal Medicine 04/11/23 documented as of this encounter
--- OUTSIDE RECORDS SUMMARY | 2024-09-27 15:43 | XMS_ITS | Encounter Summary ---
Author Organization [employer] Address [address] [facility] [address] 7[address] [place] [address] Care Team Providers Care Rotary Furnace Tender Name Role Phone Haile Zavaleta MD Primary Care Prov ider Reason for Visit * Reason Onset Date Comments Nurse Triage 09/27/2024 Encounter Details Date Type Department Care Team (Late st Contact Info) Description 09/27/2024 Telephone [facility] MEDICINE [address] [place] [address] Haile Zavaleta MD [address] [place] [address] Nurse Triage Social History Tobacco Use Types [...] Encounter - Kasie De Guzman RN - 09/27/2024 8:51 AM EDT Images from the original note were not included. Call returned to Andrey Palacios to triage below. Reports stopped smoking 4 days ago. Reports having bilateral arm pain, back pain, bilateral leg pain and all other joints. Per pt not sure if pain isrelated to stopped smoking. Pt denies any swelling, redness, rash or bruising of sites. Per pt feels similar to when tied to quit smoking the last time. Per pt wants to also know what smoking cessation options there are. Pt advised of disposition, agrees to sick on site today. Reviewed home care advise, ER precautions and reasons to call back. Multiple (2) protocols were used on this call. Disposition for Call: See in Office or Video Visit within 3 Days Future Appointments Date Time Provider Department Center 09/27/2024 1:30 PM Keri Candelario MD [facility] Protocol Used: Smoking - Tobacco Use and Problems (Adult) Protocol-Based Disposition: See in Office or Video Visit within 3 Days Video visit offer not recorded Positive Triage Question: * Requesting prescription medication to help quit smoking * All higher-acuity triage questions were negative Care Advice Discussed: * Quitting Smoking Protocol Used: Muscle Aches and Body Pain (Adult) Protocol-Based Disposition: See in Office or Video Visit within 3 Days Video visit offer not recorded Positive Triage Question: * Moderate pain (e.g., interferes with normal activities) and present > 3 days * All higher-acuity triage questions were negative Care Advice Discussed: * Reasons To Call Back - Fever occurs - You become worse * Telephone Encounter - Jay Mccray - 09/27/2024 8:39 AM EDT Symptoms: Body Aches, Back Pain - Not From Injury Outcome: Schedule an appointment to be seen within 3 days Reason: Caller denied all higher acuity questions The caller accepted this outcome. documented in this encounter Plan of Treatment Upcoming Encounters Date Type Department Care Team (Late st Contact Info) Description 10/25/2024 8:30 AM EDT Telemedicine [facility] MED & PEDS [address] [place] [address] Haile Zavaleta MD [address] [place] [address] documented as of this encounter Visit Diagnoses Not on filedocumented in this encounter Additional Health Concerns Assessment Noted Time PHQ-9 Depression Total Score: 0 05/07/20 24 2:29 PM EDT documented as of this encounter Care Teams Rotary Furnace Tender Relationship Specialty Start Date End Date Haile Zavaleta MD [address] [place] [address] PCP - General Internal Medicine 04/11/23 documented as of this encounter
--- OUTSIDE RECORDS SUMMARY | 2024-09-27 15:43 | XMS_ITS | Encounter Summary ---
Author Organization [employer] Address [address] [facility] 7t [place] [address] Care Team Providers Care Holistic Nutritionist Name Role Phone Haile Zavaleta MD Primary Care Prov ider Reason for Visit * Reason Onset Date Comments Nurse Triage 09/24/2024 Encounter Details Date Type Department Care Team (Late st Contact Info) Description 09/24/2024 Telephone [facility] [address] [place], [place] [phone] Haile Zavaleta MD [address] [place] [address] Nurse Triage Social History Tobacco Use Types [...] encounter Miscellaneous Notes * Telephone Encounter - Elisa Esquivel RN - 09/24/2024 9:32 AM EDT Called pt. He states he has been having strange pains on random parts of his body x few days. Crampy feeling on and off in lower abdomen, then last night had wrist pain that went up arm. Pt. States These sx have been causing my anxiety to escalate . Pt. States he is currently on Hydroxyzine and just started an inhaler for Asthma sx,. Pt. States When I'm at work all day and lifting heavy boxes, I have no pain anywhere, but, when I get home at night and have random aches on different parts of my body, It increases my anxiety and then I wake up the next morning and the pain is gone . Protocol Used: Muscle Aches and Body Pain (Adult) Protocol-Based Disposition: televisit today at 1115am. Video visit offer not recorded Positive Triage Questions: * Mild pain (e.g., does not interfere with normal activities) and present > 7 days * Muscle aches or body pains are a chronic symptom (recurrent or ongoing AND present > 4 weeks) * All higher-acuity triage questions were negative Care Advice Discussed: * Reassurance and Education - Mild Muscle Pain * Pain Medicines * Telephone Encounter - Diane Church - 09/24/2024 9:28 AM EDT Symptom: Abdominal Pain - Male Outcome: Schedule an urgent appointment (within 4 hours) or talk to a nurse or provider soon Reason: Started within the past 3 days The caller accepted this outcome. documented in this encounter Plan of Treatment Upcoming Encounters Date Type Department Care Team ([facility] st Contact Info) Description 10/25/2024 8:30 AM EDT Telemedicine [facility] MED & PEDS [address] [place] [address] Haile Zavaleta MD [address] [place] [address] documented as of this encounter Visit Diagnoses Not on filedocumented in this encounter Additional Health Concerns Assessment Noted Time PHQ-9 Depression Total Score: 0 05/07/20 24 2:29 PM EDT documented as of this encounter Care Teams Holistic Nutritionist Relationship Specialty Start Date End Date Haile Zavaleta MD [address] [place] [address] PCP - General Internal Medicine 04/11/23 documented as of this encounter
--- OUTSIDE RECORDS SUMMARY | 2024-09-27 15:43 | XMS_ITS | Encounter Summary ---
Author Organization [employer] Address 75 [facility] 7t [place] [address] Care Team Providers Care Machine Etcher Name Role Phone Haile Zavaleta MD Primary Care Prov ider Reason for Visit * Reason Onset Date Comments No Show 09/23/2024 Encounter Details Date Type Department Care Team ([facility] st Contact Info) Description 09/23/2024 Telephone [facility] [address] [place], [place] [phone] Haile Zavaleta MD [address] [place], [place] [phone] No Show Social History Tobacco Use Types Packs/Day Years [...] encounter Miscellaneous Notes * Telephone Encounter - Poonam Garduno RN - 09/23/2024 12:42 PM EDT TC to patient. He apologized for missing his appointment today d/t car problems. He stated he did not think he needed to reschedule at this time, bc he was feeling better. Reviewed with patient s/s of when to call the office and when to go to ER. Patient stated understand. * Telephone Encounter - Sha Gates - 09/23/2024 12:16 PM EDT No Show 09/23/24 *Right flank pain x 1 week. documented in this encounter Plan of Treatment Upcoming Encounters Date Type Department Care Team (Late st Contact Info) Description 10/25/2024 8:30 AM EDT Telemedicine [facility] MED & PEDS [address] [place] [address] Haile Zavaleta MD [address] [place] [address] documented as of this encounter Visit Diagnoses Not on filedocumented in this encounter Additional Health Concerns Assessment Noted Time PHQ-9 Depression Total Score: 0 05/07/20 24 2:29 PM EDT documented as of this encounter Care Teams Machine Etcher Relationship Specialty Start Date End Date Haile Zavaleta MD [address] [place] [address] PCP - General Internal Medicine 04/11/23 documented as of this encounter
--- OUTSIDE RECORDS SUMMARY | 2024-09-27 15:43 | XMS_ITS | Clinical Summary ---
Author Organization [employer] Address 75 [facility] 7t [place] [address] Care Team Providers Care Navigation Teacher Name Role Phone Haile Zavaleta MD Primary Care Prov ider Allergies No known active allergies Medications * This document contains information received from the source organization and may not represent a complete record from that organization. hydrOXYzine HCl (Atarax) 25 MG tablet Take 1 tablet (25 mg) by mouth every 6 (six) hours if needed for anxiety. 120 tablet 3 08/15/2024 11/14/19 25 Active albuterol 108 (90 Base) MCG/ACT inhaler Inhale 2 puffs every 6 (six) hours if needed for wheezing. 18 g 1 08/15/2024 08/15/19 26 Active psyllium (Metamucil) 58.6 % packet Take 1 packet (3.4 g of fiber) by mouth 2 times daily. Mix and drink with at least 8 ounces of water or juice. 60 packet 11 09/24/2024 09/25/19 26 Active nicotine (Nicoderm CQ) 21 MG/24HR patchIndications: Vaping nicotine dependence, non-tobacco product Place 1 patch on the skin 1 (one) time each day at the same time. 30 patch 09/27/2024 10/28/19 25 Active bisacodyl (Dulcolax) 5 MG EC tabletIndications :Other constipation Take 1 tablet (5 mg) by mouth if needed each day for constipatio n. Do not crush, chew, or split. 30 tablet 09/27/2024 10/28/19 25 Active Active Problems Problem Noted Date Diagnosed Date Physical exam 05/07/2024 Assessment & Plan (05/07/2024 7:01 PM EDT): Unremarkable physical exam, will order labs for further evaluation Anxiety 04/11/2023 Assessment & Plan (05/07/2024 6:59 PM EDT): Controlled on hydroxyzine, no changes will be made, no suicidal/homicidal ideas Assessment & Plan (04/08/2024 1:38 PM EDT): Much controlled with hydroxyzine as needed, he is also doing medical marijuana. He is not interested in BH therapy, refers has a therapist at work as needed. Denied suicidal/homicidal ideas Assessment & Plan (11/14/2023 12:39 PM EDT): Controlled with hydroxyzine as needed, no suicidal/homicidal ideas, continue with current therapy, patient not following with therapist, and is not interested in a referal Assessment & Plan (04/11/2023 11:01 AM EDT): Patient refers having long history of anxiety, denied depressed mood, suicidal./homicidal ideas, will refer to behavioral health and will staert on hydroxyzine Encounter to establish care 04/11/2023 Assessment & Plan (04/11/2023 11:04 AM EDT): Patient has not been followed in over a year. Has medical hx of anxiety, he refers was treated previously, never followed by a psychiatrist. Currently smoke marijuana daily and vapes. He is sexually active with 1 female partner and uses condoms as contraception. Encounter for assessment of sexually transmitted disease exposure 04/11/2023 Encounters Date Type Department Care Team Description 09/27/2024 1:30 PM EDT Office Visit [facility] MED [facility] PEDS [address] [place] [address] Keri Candelario MD Vaping nicotine dependence, non-tobacco product (Primary Dx); Other constipation 09/27/2024 Travel 09/27/2024 Telephone [facility] MEDICINE [address] [place], [place] [phone] Haile Zavaleta MD Nurse Triage 09/24/2024 11:15 AM EDT Telemedicine [facility] MED & PEDS [address] [place] [address] Haile Zavaleta MD Strain of left subscapularis muscle, sequela (Primary Dx); Slow transit constipation 09/24/2024 Travel 09/24/2024 Telephone [facility] PED[facility] [address] [place] [address] Haile Zavaleta MD Nurse Triage 09/23/2024 Telephone [facility] PED[facility] [address] [place] [address] Haile Zavaleta MD No Show 09/19/2024 Telephone [facility] MEDICINE [address] [place] [address] Haile Zavaleta MD Nurse Triage 09/16/2024 Telephone [facility] PED[facility] [address] [place] [address] Haile Zavaleta MD Nurse Triage 08/15/2024 2:30 PM EST Telemedicine [facility] MED & PEDS [address] [place] [address] Haile Zavaleta MD Influenza (Primary Dx); Dietary counseling; Exercise counseling; Acute cough 08/15/2024 Travel 08/14/2024 Telephone [facility] PED[facility] [address] [place] [address] Haile Zavaleta MD chart prep from Last 3 Months Family History Medical History Relation Name Comments No Known Problems Father No Known Problems Mother Relation Name Status Comments Father Mother Social History Tobacco Use Types Packs/Day Years Used Date Smoking Tobacco: Never Smokeless Tobacco: Current Snuff Tobacco Cessation:Ready to Q uit: No; Counseling Given: Yes Alcohol Use Standard Drinks/Week Comments Never 0 [...] Orientation Straight 04/11/2023 8: 52 AM EDT Last Filed Vital Signs Vital Sign Reading Time Taken Comments Blood Pressure 128/71 09/27/2024 1:35 PM EDT Pulse 64 09/27/2024 1:35 PM EDT Temperature 37 ??C (98.6 ??F) 09/27/2024 1:35 PM EDT Respiratory Rate 20 09/27/2024 1:35 PM EDT Oxygen Saturation 98% 09/27/2024 1:35 PM EDT Inhaled Oxygen Concentration - - Weight 56.2 kg (124 lb) 09/27/2024 1:35 PM EDT Height 177.8 cm (5' 10 ) 09/27/2024 1:35 PM EDT Body Mass Index 17.79 09/27/2024 1:35 PM EDT Plan of Treatment Upcoming Encounters Date Type Department Care Team ([facility] st Contact Info) Description 10/25/2024 8:30 AM EDT Telemedicine [facility] MED & PEDS [address] [place] [address] Haile Zavaleta MD [address] [place] [phone] Health Maintenance Due Date Last Done Comments Chlamydia and Gonorrhea Screening 2001 HIV Screening 2001 Alcohol/Substance Use Screening 2013 Family Planning (PISQ) 2016 HPV Vaccines (3 - 3-dose series) 08/26/2019 06/03/2019, 05/17/2017 Hepatitis C Screening 12/24/2019 DTaP/Tdap/Td Vaccines (1 - Tdap) 2020 Hepatitis B Vaccines (1 of 3 - 19+ 3-dose series) 2020 COVID-19 Vaccine (2 - 2023-2 5 season) 2024 01/26/2021 Influenza Vaccine (#1) 2024 03/18/2016 SDOH Screening 04/30/2025 04/30/2024 Depression Screening 05/07/2025 05/07/2024, 05/07/2024 Tobacco Screening 09/27/2025 09/27/2024 Lipid Panel 06/04/2029 06/04/2024 Zoster Vaccines (1 of 2) 12/24/2051 RSV Patients and Patients Aged 60 years or older (1 - 1-dose 75+ series) 2076 Meningococcal Vaccine Completed 06/03/2019 HIB Vaccines Aged Out No longer eligi ble based on patient's age to complete this topic Hepatitis A Vaccines Aged Out No long er eligible based on patient's age to complete this topic IPV Vaccines Aged Out No longer eligi ble based on patient's age to complete this topic Pneumococcal Vaccine: Pediatrics (0 to 5 Years) and At-Risk Patients (6 to 49) Years) Aged Out No longer eligible b ased on patient's age to complete this topic RSV under 20 months Aged Out No longe r eligible based on patient's age to complete this topic Rotavirus Vaccines Aged Out No longer eligible based on patient's age to complete this topic Procedures Procedure Name Priority Date/Time Associated Diagnosis Comments LIPID PANEL, STANDARD Routine 06/04/2024 10:43 AM EST Underweight (BMI < 18.5) from Last 3 Months or Most Recently Relevant to Health Maintenance Results * (ABNORMAL) Lipid Panel, Standard (06/04/2024 10:43 AM EST) Triglycerides 105 <150 mg/dL [facility] Comment:Desirable Triglyceri de: less than 150 mg/dLBorderline High Triglyceride 150-199 mg/dLHigh Triglyceride: 200-499 mg/dLVery High Triglyceride: greater than or equal to 5OO mg/dL Cholesterol 184 <200 mg/dL [facility] Comment:Desirable Cholestero l: less than 200 mg/dLBorderline High Cholesterol: 200-239 mg/dLHigh Cholesterol: greater than 239 mg/dL LDL Cholesterol Calculated 112(H) <100 mg/dL [facility] Comment:Desirable LDL: less than 100 mg/dLNear Optimal/Above Optimal LDL: 110- 129 mg/dLBorderline High LDL: 130-159 mg/dLHigh LDL: 160-189 mg/dLVery High LDL: greater than or equal to 190 mg/dL HDL Cholesterol 51 >40 mg/dL [facility] Comment:Desirable HDL: great er than 40 mg/dL Note: This HDL assay may give artificially low results in patients with liver disease. Blood Venous blood specimen / Unknown 06/04/2024 10:43 AM EST 06/04/2024 2:11 PM EST Haile Simon MD LAB BLOOD ORDERABL ES Final Result [facility] [address] [place] [phone] from Last 3 Months or Most Recently Relevant to Health Maintenance Insurance [employer] Care Teams Navigation Teacher Relationship Specialty Start Date End Date Haile Zavaleta MD [address] [place] [id number] PCP - General Internal Medicine 04/11/23
--- OUTSIDE RECORDS SUMMARY | 2024-09-27 15:43 | XMS_ITS ---
Author Name [facility] Organization Unknown Encounters Encounter Type Encounter Reason Primary Diagnosis Location Date Emergency Anxiety disorder, unspecified Anxiety disorder, unspecified [employer] 03/03/2023 Care Team Organization Name Specialty Phone Email Start Date End Da te [employer] 03/03/2023 03/03/2023 [employer] 03/03/2023
--- OUTSIDE RECORDS SUMMARY | 2024-09-27 15:43 | XMS_ITS | Encounter Summary ---
Author Organization [employer] Address [address] [facility] [address] 7[address] [place] [address] Care Team Providers Care Order Expediter Name Role Phone Haile Zavaleta MD Primary Care Prov ider Encounter Details Date Type Department Care Team (Latest Contact Info) Description 09/24/2024 Travel Social History Tobacco Use Types Packs/Day Years [...] is your housing situation today? I have rosiohonorio lloyd 04/30/[address] you [...] AM EDT documented as of this encounter Plan of Treatment Upcoming Encounters Date Type Department Care Team (Late st Contact Info) Description 10/25/2024 8:30 AM EDT Telemedicine [facility] MED & PEDS [address] [place] [address] Haile Zavaleta MD [address] [place] [address] documented as of this encounter Visit Diagnoses Not on filedocumented in this encounter Additional Health Concerns Assessment Noted Time PHQ-9 Depression Total Score: 0 05/07/20 24 2:29 PM EDT documented as of this encounter Care Teams Order Expediter Relationship Specialty Start Date End Date Haile Zavaleta MD [address] [place] [address] PCP - General Internal Medicine 04/11/23 documented as of this encounter
--- OUTSIDE RECORDS SUMMARY | 2024-09-27 15:43 | XMS_ITS | Encounter Summary ---
Author Organization [employer] Address [address] [place] [address] Care Team Providers Care Telecommunications Cable Jointer Name Role Phone Haile Zavaleta MD Primary Care Prov ider Encounter Details Date Type Department Care Team (Latest Contact Info) Description 09/27/2024 Travel Social History Tobacco Use Types Packs/Day [...] Info) Description 10/25/2024 8:30 AM EDT Telemedicine [facility] [address] [place] [address] Haile Zavaleta MD [address] [place] [address] documented as of this encounter Visit Diagnoses Not on filedocumented in this encounter Additional Health Concerns Assessment Noted Time PHQ-9 Depression Total Score: 0 05/07/20 24 2:29 PM EDT documented as of this encounter Care Teams Telecommunications Cable Jointer Relationship Specialty Start Date End Date Haile Zavaleta MD [address] [place] [address] PCP - General Internal Medicine 04/11/23 documented as of this encounter
--- OUTSIDE RECORDS SUMMARY | 2024-09-27 15:43 | XMS_ITS | Encounter Summary ---
Author Organization [employer] Address [address] [place] [address] Care Team Providers Care Customer Service Coordinator Name Role Phone Haile Zavaleta MD Primary Care Prov ider Encounter Details Date Type Department Care Team (Latest Contact Info) Description 09/24/2024 11:15 AM EDT Telemedicine [facility] [address] [place], [place] [phone] Haile Zavaleta MD [address] [place] [address] Strain of left subscapularis muscle, sequela (Primary Dx); Slow transit constipation Social History Tobacco Use Types Packs/Day Years [...] AM EDT documented as of this encounter Progress Notes * Haile Simon MD - 09/24/2024 11:15 AM EDT Subjective Patient ID: Andrey Palacios is a 23 y.o. adult who presents for No chief complaint on file.. Constipation This is a chronic problem. The patient is not on a high fiber diet. Associated symptoms include abdominal pain. Pertinent negatives include no fecal incontinence or vomiting. There is no history of inflammatory bowel disease. Review of Systems Gastrointestinal: Positive for abdominal pain and constipation. Negative for vomiting. Objective Physical Exam Neurological: General: No focal deficit present. Mental Status: He is oriented to person, place, and time. Psychiatric: Mood and Affect: Mood normal. Behavior: Behavior normal. Assessment/Plan Problem List Items Addressed This Visit None Visit Diagnoses Strain of left subscapularis muscle, sequela - Primary Told to rest, apply ice, take tylenol/ibuprofen as needed, stretch 2-3 times a day Slow transit constipation Will provide metamucil, encouraged to increase fiber and water intake, follow up as needed documented in this encounter Plan of Treatment Upcoming Encounters Date Type Department Care Team ([facility] st Contact Info) Description 10/25/2024 8:30 AM EDT Telemedicine [facility] [address] [place] [address] Haile Zavaleta MD [address] [place], [place] [phone] documented as of this encounter Visit Diagnoses Diagnosis Strain of left subscapularis muscle, sequela- Primary Slow transit constipation documented in this encounter Additional Health Concerns Assessment Noted Time PHQ-9 Depression Total Score: 0 05/07/20 24 2:29 PM EDT documented as of this encounter Care Teams Customer Service Coordinator Relationship Specialty Start Date End Date Haile Zavaleta MD [address] [place] [id number] PCP - General Internal Medicine 04/11/23 documented as of this encounter
--- OUTSIDE RECORDS SUMMARY | 2024-09-27 15:43 | XMS_ITS | Encounter Summary ---
Author Organization [employer] Address [address] [place] [address] Care Team Providers Care Associate Spa Director Name Role Phone Haile Zavaleta MD Primary Care Prov ider Reason for Visit * Reason Comments Anxiety Encounter Details Date Type Department Care Team (Late st Contact Info) Description 09/27/2024 1:30 PM EDT Office Visit [facility] [address] [place], [place] [phone] Keri Candelario MD [address] [place] [address] Vaping nicotine dependence, non-tobacco product (Primary Dx); Other constipation Social History Tobacco Use Types Packs/Day [...] AM EDT documented as of this encounter Last Filed Vital Signs Vital Sign Reading [...] Mass Index 17.79 09/27/2024 1:35 PM EDT documented in this encounter Progress Notes * Keri Candelario MD - 09/27/2024 1:30 PM EDT Subjective Patient ID: Andrey Palacios is a 23 y.o. adult who presents for Anxiety. Anxiety Symptoms include decreased concentration and nervous/anxious behavior. Patient reports no confusionor palpitations. Appointment made because patient feels anxious. She has quit vaping 2 days ago and since then's have been feeling right-sided low back pain right arm pain left arm pain, tremor. Patient reports that has been vaping for the last 4 years daily. He vapes all day long and has decided to stop 2 days ago. He is already on hydroxyzine 25 mg to take as needed for his anxiety which has calm him down partially. Patient Active Problem List Diagnosis Anxiety Encounter to establish care Encounter for assessment of sexually transmitted disease exposure Physical exam No Known Allergies Current Outpatient Medications on File Prior to Visit Medication Sig Dispense Refill albuterol 108 (90 Base) MCG/ACT inhaler Inhale 2 puffs every 6 (six) hours if needed for wheezing. 18 g 1 hydrOXYzine HCl (Atarax) 25 MG tablet Take 1 tablet (25 mg) by mouth every 6 (six) hours if needed for anxiety. 120 tablet 3 psyllium (Metamucil) 58.6 % packet Take 1 packet (3.4 g of fiber) by mouth 2 times daily. Mix and drink with at least 8 ounces of water or juice. 60 packet 11 No current facility-administered medications on file prior to visit. Review of Systems Constitutional: Negative for activity change, appetite change, chills and diaphoresis. HENT: Negative for dental problem, drooling and ear discharge. Eyes: Negative for pain and itching. Respiratory: Negative for cough, choking and chest tightness. Cardiovascular: Negative for palpitations and leg swelling. Gastrointestinal: Positive for constipation. Negative for abdominal pain, anal bleeding and blood in stool. Endocrine: Negative for cold intolerance and heat intolerance. Genitourinary: Negative for flank pain, frequency and genital sores. Musculoskeletal: Negative for back pain. Neurological: Negative for light-headedness, numbness and headaches. Psychiatric/Behavioral: Positive for agitation and decreased concentration. Negative for confusion.The patient is nervous/anxious. Objective BP 128/71 (BP Location: Left arm, Patient Position: Sitting, BP Cuff Size: Adult) Pulse 64 Temp98.6 ??F (37 ??C) (Oral) Resp 20 Ht 5' 10 (1.778 m) Wt 124 lb (56.2 kg) SpO2 98% BMI 17.79 kg/m?? Physical Exam Constitutional: General: He is not in acute distress. Appearance: Normal appearance. He is not ill-appearing, toxic-appearing or diaphoretic. Cardiovascular: Rate and Rhythm: Normal rate. Heart sounds: No murmur heard. No friction rub. No gallop. Pulmonary: Effort: Pulmonary effort is normal. Neurological: General: No focal deficit present. Mental Status: He is alert. Psychiatric: Mood and Affect: Mood is anxious. Assessment/Plan Diagnoses and all orders for this visit: Vaping nicotine dependence, non-tobacco product Comments: Patient's symptoms are compatible with nicotine withdrawal syndrome Nicotine patches prescribed Follow-up in 1 month with PCP Orders: - nicotine (Nicoderm CQ) 21 MG/24HR patch; Place 1 patch on the skin 1 (one) time each day at the same time. Other constipation Comments: High-fiber diet Metamucil Follow-up with PCP in 1 month Patient will be called with the results of the blood work. Orders: - TSH W/Reflex to FT4; Future - bisacodyl (Dulcolax) 5 MG EC tablet; Take 1 tablet (5 mg) by mouth if needed each day for constipation. Do not crush, chew, or split. - Basic Metabolic Panel; Future documented in this encounter Plan of Treatment Upcoming Encounters Date Type Department Care Team (Late st Contact Info) Description 10/25/2024 8:30 AM EDT Telemedicine [facility] [address] [place] [address] Haile Zavaleta MD [address] [place] [address] Scheduled Orders Name Type Priority Associated Diagnoses Orde r Schedule TSH W/Reflex to FT4 Lab Routine Other constipation Expected: 09/27/2024 (Approximate), Expires: 09/27/2025 Basic Metabolic Panel Lab Routine Other constipation Expected: 09/27/2024 (Approximate), Expires: 09/27/2025 documented as of this encounter Visit Diagnoses Diagnosis Vaping nicotine dependence, non-tobacco product- Primary Other constipation documented in this encounter Additional Health Concerns Assessment Noted Time PHQ-9 Depression Total Score: 0 05/07/20 24 2:29 PM EDT documented as of this encounter Care Teams Associate Spa Director Relationship Specialty Start Date End Date Haile Zavaleta MD [address] [place] [address] PCP - General Internal Medicine 04/11/23 documented as of this encounter
--- OUTSIDE RECORDS SUMMARY | 2024-09-27 15:43 | XMS_ITS | Clinical Summary ---
Author Organization [facility] Address [address] [place] [address] Care Team Providers Care Business Technology Teacher Name Role Phone Unavailable Primary Care Provider Unavailabl e Allergies No known active allergies Medications No known medications Active Problems Problem Noted Date Diagnosed Date Anxiety 03/03/2023 History of ADHD 03/03/2023 Social History Tobacco Use Types Packs/Day Years Used Date Smoking Tobacco: Never Assessed Sex and Gender Information Value Date Recorded Sex Assigned at Male 03/03/2023 11:23 AM EDT Gender Identity Male 03/03/2023 11:23 AM EDT Sexual Orientation Heterosexual (straight) 03/03 11:23 AM EDT Last Filed Vital Signs Vital Sign Reading Time Taken Comments Blood Pressure 108/53 03/03/2023 2:36 PM EDT Pulse 87 03/03/2023 2:36 PM EDT Temperature 37.1 ??C (98.7 ??F) 03/03/2023 2:36 PM ED T Respiratory Rate 16 03/03/2023 2:36 PM EDT Oxygen Saturation 99% 03/03/2023 2:36 PM EDT Inhaled Oxygen Concentration - - Weight - - Height - - Body Mass Index - - Plan of Treatment Health Maintenance Due Date Last Done Comments Hepatitis C Virus Screening 2001 HIV Screening 2014 HPV Vaccines (1 - Male 3-dos e series) 2016 DTaP/Tdap/Td Vaccines (1 - Tdap) 2020 Hepatitis B Vaccines (1 of 3 - 19+ 3-dose series) 2020 Influenza Vaccine 02/15/2024 COVID-19 Vaccine ( - 2023-2 5 season) 2024 Pneumococcal Vaccine: Pediat glen (0-5 Years) and At-Risk Patients (6 to 49 Years) Aged Out No longer eligible b ased on patient's age to complete this topic
[2024-09-27 15:59] LABS: TSH reflex Free T4 0.43 uIU/mL (0.32-4.0)
== END 2024-09-27 14:04 | disposition home or self-care (01) ==
LOC: HO.CHCLDS 14:03
PROVIDERS: Visit Provider Internal Medicine
DX: K59.09 Other constipation (principal)
CPT/HCPCS: 36415; 80048; 84443

== ENCOUNTER 2024-09-30 13:45 | Emergency (ER) | payer OTHER, SELFPAY ==
--- NOTE | 2024-09-30 | ECG_ITS ---
Test Reason : cp Blood Pressure : */* mmHG Vent. Rate : 90 BPM Atrial Rate : 90 BPM P-R Int : 132 ms QRS Dur : 94 ms QT Int : 330 ms P-R-T Axes : 83 82 63 degrees QTcB Int : 403 ms Normal sinus rhythm with sinus arrhythmia Right atrial enlargement Borderline ECG When compared with ECG of 15-Jun-2021 15:29, No significant change was found Referred By: Generic ED Physician Electronically Signed By: Anastacio Beebe
[2024-09-30 14:26] VITALS: BP 138/74; PULSE 76; RESP 22; TEMP 37.2; O2SAT 98; BMI 17.0
--- NOTE | 2024-09-30 14:29 | ED.GENADULT ---
HPI - General Adult General Chief complaint: Arrhythmia/Palpitations Stated complaint: CP, palpitations, and arm numbness Time Seen by Provider: 09/30/24 19:54 History of Present Illness ED Provider: Jeffery RESTREPO narrative: The patient is a 23-year-old male who says that he has been vaping a great deal for the last 4 years with nicotine vapes. He also uses marijuana by vaping. He recently stopped his nicotine vaping. He has been feeling more and more anxious about his health ever since he stopped his nicotine vaping. He says he has a long history of health anxiety. Over the last few days he has felt a lot of pains in his chest and in his arms that made him worried he might be having a heart attack. He also feels that he gets short of breath with exertion and was even more worried about his heart and came to the emergency room for evaluation. The patient acknowledges having a great deal of chronic anxiety about his health. He says that he has been prescribed something for anxiety on an as-needed basis. This may be hydroxyzine. He says it is not really help. Patient says that he was feeling sufficiently anxious yesterday that he called the national depression hotline. he says that he was advised by the person with whom he spoke to try deep breathing exercises. He says that he felt that was helpful yesterday. He says he tried on his own again today and it was not helpful. He has no suicidal ideation. Related Data Allergies Allergy/AdvReac Type Severity Reaction Status Date / Time No Known Allergies Allergy Verified 09/30/24 14:30 Review of Systems Review of Systems: Yes all other systems are reviewed and are negative [facility] Social History Social History Smoked in Last 30 Days: Yes Use of substances other than those prescribed or required for medical reasons: Yes Substance Use Type: Marijuana Advance Directives: No Advance Directives Information Provided: No Physical Exam ED Vital Signs: Vital Signs - 24 hr 09/30/24 18:07 09/30/24 19:39 09/30/24 20:47 Temperature 98.3 F 98.9 F 98.9 F Pulse Rate 71 62 62 Respiratory Rate 18 12 12 Blood Pressure 114/57 L 132/85 132/85 Pulse Oximetry 100 100 100 Oxygen Delivery Method Room Air Room Air Room Air BMI result Body Mass Index 17.0 Const Other: The patient is a very slim 23-year-old who is awake and alert. He has a very anxious demeanor. He does not seem acutely medically ill. HENMT Other: Face is symmetrical. Mucous membranes moist. Posterior pharynx is normal. Eyes General: appearance normal, both eyes and all related structures Neck Neck: Yes normal visual inspection, Yes full ROM and Yes no lymphadenopathy Resp Effort & Inspection: normal respiratory effort Auscultation: clear to auscultation bilaterally Cardio Rate: regular rate Rhythm: regular rhythm Heart sounds: S1 normal heart sound present and S2 normal heart sound present GI Other: Abdomen is flat, soft, and nontender. Skin Other: The skin is dry and unremarkable. General skin exam: no rashes or lesions noted Neuro Other: The patient is awake and alert. He is very talkative and expressed a great deal of a sense of anxiety. Cranial nerves are intact. He moves extremities normally and appropriately and seems grossly neurologically intact. Extrem Other: No abnormalities to the extremities. No calf swelling or tenderness. No edema. He moves all his extremities easily and normally. Course Course Course Narrative: This is a rapid medical exam performed by Soo Zeng NP: Additional HPI, ROS, PE not included below will be deferred to primary provider. Patient is a 23-year-old male with history of anxiety presenting in the emergency department with complaint of chest pain, palpitations, left arm numbness. States he recently stopped smoking 5 days ago. Complains feeling as though his heart is fatigue. Plan: EKG, labs Medical Decision Making Medical Decision Making MDM Narrative: The patient is a 23-year-old who presents with a complaint of chest pain that I think is largely a manifestation of health anxiety. It may also be related to recent cessation of vaping. the patient describes having been a very heavy user of nicotine vaping for the last few years. He also does marijuana vaping but to a lesser degree. He says he stopped nicotine vaping week ago. Perhaps this is making him more anxious. Clinically does not seem to have any acutely dangerous process at work. I performed an informal bedside echo which showed normal cardiac function. The patient seemed to find this reassuring. Given the degree of anxiety I asked the patient if he would like to speak with the care team today. He had had a long wait in the waiting room prior to being seen by a provider and did not wish to be in the emergency room any longer. Nevertheless he seemed open to the idea of an outpatient evaluation. He was given the contact information for the [facility] walk-in clinic and was encouraged to try going there to discuss his feelings of anxiety and also to follow-up with his PCP at the [facility].. Lab Data 09/30/24 15:09 09/30/24 15:09 Labs: Lab Results 09/30/24 09/30/24 Range/Units 15:09 18:14 WBC 11.7 H (4.8-10.8) X10*3/uL RBC 5.20 (4.60-5.80) X10*6/uL Hgb 15.1 (14.0-18.0) g/dl Hct 43.9 (42.0-52.0) % MCV 84.4 (80.0-98.0) fL MCH 29.0 (27.0-33.0) pg MCHC 34.4 (31.0-36.0) g/dl RDW 11.3 (11.0-16.0) % Plt Count 289 (160-400) X10*3/uL MPV 8.3 L (9.4-12.4) fL Immature Gran % (Auto) 0.3 (0.0-0.4) % Neut % (Auto) 81.2 H (45-73) % Lymph % (Auto) 11.8 L (20-40) % [place] % (Auto) 6.0 (2-11) % Eos % (Auto) 0.3 (0-4) % Baso % (Auto) 0.4 (0-2) % Lymph # (Auto) 1.4 (1.2-4.9) X10*3/uL [place] # (Auto) 0.7 (0.1-1.2) X10*3/uL Eos # (Auto) 0.0 (0.0-0.4) X10*3/uL Baso # (Auto) 0.1 (0.0-0.2) X10*3/uL Abs Immat Gran (auto) 0.04 H (0.00-0.03) X10*3/uL Absolute Neuts (auto) 9.5 H (2.0-8.3) x10*3/uL Absolute Nucleated RBC 0.000 (0.0-0.012) X10*3/uL Nucleated RBC % (auto) 0.0 (0.0-0.2) /100WBC Sodium 140 (135-145) mmol/L Potassium 4.1 D (3.3-5.1) mmol/L Chloride 104 (96-108) mmol/L Carbon Dioxide 30 H (22-29) mmol/L Anion Gap 10 L (12-20) BUN 17 H (9-16) mg/dL Creatinine 0.97 (0.5-1.4) mg/dL Estim Creat Clear Calc 95.7 Estimated GFR > 60 Random Glucose 179 H (60-115) mg/dL Calcium 10.1 (8.4-10.2) mg/dL Magnesium 1.9 (1.6-2.6) mg/dL Total Bilirubin 0.9 (0.0-1.0) mg/dL AST 24 (5-37) U/L ALT 25 (0-40) U/L Alkaline Phosphatase 55 (39-117) U/L Troponin I High Sens < 2.7 (<3.5-35.0) ng/L Total Protein 7.6 (6.5-8.0) g/dL Albumin 4.8 (3.5-5.0) g/dL TSH 1.35 (0.32-4.0) uIU/mL Influenza Type A (PCR) NEGATIVE (Negative) Influenza Type B (PCR) NEGATIVE (Negative) RSV RNA Qual (PCR) NEGATIVE (Negative) SARS-CoV-2 RNA (RT-PCR) NEGATIVE (Negative) Discharge Plan Discharge Clinical Impression: Chest pain, Anxiety about health Patient Disposition: Home, Self-Care Additional Instructions: Your testing in the emergency room today is very reassuring. I do not think you are having any acute heart or lung problem. I think you have a great deal of anxiety about your health. I would recommend that you try to get connected with a mental health professional regarding your anxiety about your health. There is an office run by the [facility] ([facility]) at 11:[address] [facility] in [place] which I believe you can simply go to during regular business hours as a drop in. The phone number there is [phone]. I believe this is a 24 hour number you can call at any time. Please also plan on following up with your regular doctor. Return to the emergency room if worse. Referrals: Haile Zavaleta MD [Physician] - (health anxiety) Interventions: ED Discharge Assessment Last Done: 09/30/24 20:47 Discharge Date/Time: 09/30/24 20:48 Print Language: Yakut
[2024-09-30 15:13] LABS: MANUAL DIFF FLAG NO
[2024-09-30 15:19] LABS: Basophils Absolute Auto 0.1 X10*3/uL (0.0-0.2); Basophils Percent Auto 0.4 % (0-2); Eosinophils Percent Auto 0.3 % (0-4); Hematocrit 43.9 % (42.0-52.0); Hemoglobin 15.1 g/dl (14.0-18.0); Imm Gran Abs Auto 0.04 X10*3/uL (0.00-0.03); Imm Gran Pct Auto 0.3 % (0.0-0.4); Lymphocytes Absolute Auto 1.4 X10*3/uL (1.2-4.9); Lymphocytes Percent Auto 11.8 % (20-40); Mean Corpuscular HGB Conc 34.4 g/dl (31.0-36.0); Mean Corpuscular Volume 84.4 fL (80.0-98.0); Mean Platelet Volume 8.3 fL (9.4-12.4); Monocytes Absolute Auto 0.7 X10*3/uL (0.1-1.2); Neutrophils Absolute Auto 9.5 x10*3/uL (2.0-8.3); Neutrophils Percent Auto 81.2 % (45-73); Platelet Count 289 X10*3/uL (160-400); Red Cell Distribution Width 11.3 % (11.0-16.0); White Blood Count 11.7 X10*3/uL (4.8-10.8)
[2024-09-30 15:34] LABS: Alanine Aminotransferase 25 U/L (0-40); Albumin Level 4.8 g/dL (3.5-5.0); Alkaline Phosphatase 55 U/L (39-117); Anion Gap 10 (12-20); Aspartate Amino Transferase 24 U/L (5-37); Bilirubin Total 0.9 mg/dL (0.0-1.0); Blood Urea Nitrogen 17 mg/dL (9-16); Calcium 10.1 mg/dL (8.4-10.2); Carbon Dioxide 30 mmol/L (22-29); Chloride 104 mmol/L (96-108); Creatinine Clr Calc Pharmacy 95.7; Estimated Glomerular Filt Rate > 60; Glucose Random 179 mg/dL (60-115); Magnesium 1.9 mg/dL (1.6-2.6); Potassium 4.1 mmol/L (3.3-5.1); Sodium 140 mmol/L (135-145); Total Protein 7.6 g/dL (6.5-8.0)
[2024-09-30 15:35] LABS: Troponin-I High Sensitivity < 2.7 ng/L (<3.5-35.0)
[2024-09-30 15:48] LABS: TSH reflex Free T4 1.35 uIU/mL (0.32-4.0)
[2024-09-30 18:07] VITALS: BP 114/57; PULSE 71; RESP 18; TEMP 36.8; O2SAT 100
[2024-09-30 19:05] LABS: Influenza A PCR NEGATIVE (Negative); Influenza B PCR NEGATIVE (Negative); Resp Syncy Virus RNA Qual PCR NEGATIVE (Negative); SARS COV2 PCR INHOUSE NEGATIVE (Negative)
[2024-09-30 19:39] VITALS: BP 132/85; PULSE 62; RESP 12; TEMP 37.2; O2SAT 100
[2024-09-30 20:47] VITALS: BP 132/85; PULSE 62; RESP 12; TEMP 37.2; O2SAT 100
== END 2024-09-30 20:48 | disposition home or self-care (01) ==
PROVIDERS: Registered Nurse Emergency; Emergency Provider Emergency Medicine
DX: R07.89 Other chest pain (principal); R00.2 Palpitations; R20.0 Anesthesia of skin; F41.9 Anxiety disorder, unspecified; R06.02 Shortness of breath; Z03.818 Encounter for observation for suspected exposure to other biological agents ruled out; Z87.891 Personal history of nicotine dependence
CPT/HCPCS: 0241U; 36415; 80053; 83735; 84443; 84484; 85025; 93005; 99283; 99284

== ENCOUNTER → 2024-09-30 13:51 | Outpatient (BNV) | payer OTHER, SELFPAY | PROVIDERS: Emergency Provider Emergency Medicine; Visit Provider Internal Medicine Cardiovascular Disease | DX: I51.7 Cardiomegaly (principal); I49.9 Cardiac arrhythmia, unspecified | CPT/HCPCS: 93010 ==

== ENCOUNTER 2024-10-13 09:54 | Emergency (ER) | payer OTHER, SELFPAY ==
--- NOTE | 2024-10-13 | ECG_ITS ---
Test Reason : CP Blood Pressure : */* mmHG Vent. Rate : 72 BPM Atrial Rate : 72 BPM P-R Int : 120 ms QRS Dur : 94 ms QT Int : 334 ms P-R-T Axes : -14 -19 -7 degrees QTcB Int : 365 ms Normal sinus rhythm Minimal voltage criteria for LVH, may be normal variant ( R in aVL ) Borderline ECG When compared with ECG of 30-Sep-2024 13:51, Questionable change in QRS axis T wave inversion now evident in Inferior leads Referred By: Generic ED Physician Electronically Signed By: JACKY HARMON MD
--- NOTE | ~2024-10-13 | CT_ITS ---
CLINICAL HISTORY: tender RLQ with peritoneal signs CT abdomen and pelvis with contrast Comparison: None Findings: No consolidation or effusion. Appendix is normal, reference coronal image 24. No bowel obstruction or free air. There is diverticulosis without diverticulitis. Gas and fluid seen throughout nondistended small and large bowel. Mild engorgement of the vasa recta. The liver, spleen, gallbladder, adrenal glands and pancreas are unremarkable. Kidneys, ureters and bladder appear within normal limits. No acute osseous finding. Impression: Normal appendix. Findings suggest mild enteritis This document has been electronically signed by: Reginald Maddox MD on 10/13/2024 12:06:38
[2024-10-13 09:55] VITALS: BP 112/75; PULSE 66; RESP 18; TEMP 36.3; O2SAT 99; BMI 18.7
[2024-10-13 10:13] LABS: MANUAL DIFF FLAG NO
[2024-10-13 10:14] LABS: Basophils Percent Auto 0.8 % (0-2); Eosinophils Absolute Auto 0.1 X10*3/uL (0.0-0.4); Hematocrit 44.1 % (42.0-52.0); Hemoglobin 15.3 g/dl (14.0-18.0); Imm Gran Abs Auto 0.02 X10*3/uL (0.00-0.03); Imm Gran Pct Auto 0.4 % (0.0-0.4); Lymphocytes Absolute Auto 2.3 X10*3/uL (1.2-4.9); Lymphocytes Percent Auto 44.1 % (20-40); Mean Corpuscular HGB Conc 34.7 g/dl (31.0-36.0); Mean Corpuscular Hemoglobin 29.3 pg (27.0-33.0); Mean Corpuscular Volume 84.3 fL (80.0-98.0); Mean Platelet Volume 8.2 fL (9.4-12.4); Monocytes Absolute Auto 0.4 X10*3/uL (0.1-1.2); Monocytes Percent Auto 8.2 % (2-11); Neutrophils Absolute Auto 2.3 x10*3/uL (2.0-8.3); Neutrophils Percent Auto 45.5 % (45-73); Platelet Count 260 X10*3/uL (160-400); Red Blood Count 5.23 X10*6/uL (4.60-5.80); Red Cell Distribution Width 11.4 % (11.0-16.0); White Blood Count 5.1 X10*3/uL (4.8-10.8)
--- NOTE | 2024-10-13 10:16 | ED_ITS ---
HPI - Abdominal Pain General Chief Complaint: Abdominal Pain Stated Complaint: lower right sided abd pain Time Seen by Provider: 10/13/24 09:58 Source: patient Mode of arrival: ambulatory Limitations: no limitations History of Present Illness ED Provider: Judy Serna PA-C HPI narrative: Patient reports urgent care today for acute onset of abdominal pain that localizes to the right lower quadrant with some radiation to his left quadrant and right lower back side. Onset was yesterday has been constant and getting more severe. He states the pain was so bad last night that he had 2 episodes of nausea and vomiting. This does typically happen when he gets anxious as well so was unsure if it was from this or from his anxiety over the pain that he has. Patient has not experienced pain like this before in the past. Intermittently he has had constipation over the years but never to the point where it has caused this type of pain. He normally and typically has bowel movements every morning last bowel movement was yesterday morning and was solidpellets. He took laxative prior to coming here. He denies any fevers or chills or respiratory symptoms such as coughing nasal congestion or shortness of breath. Denies any dysuria urgency or frequency or testicular pain or swelling. He states he tried pushing really hard in this area to try to distract him from the pain in his right lower quadrant but it made no difference for him. He is on both Tylenol and Motrin and still no difference even the slightest movement bothers him got to the appointment so severe so he came straight here. he has been voiding regularly and denies flank pain. No history of abdominal surgeries no recent history of any heavy lifting pushing or moving. No prior history of hernias. No pain radiating to groin or chest wall. Last meal last night pasta. No change, thought eating might help. No intake this morning as he was afraid to vomit. Smokes marijuana no hx of cyclic vomiting syndrome. No body aches or joint pain. NO rashes. No EtOH use. Patient does admit to nicotine dependence he quit cold turkey 2 weeks ago. His primary care provider is aware of this managing his anxiety no muscle tremors or weakness headache or dizziness reported. Chart reviewed patient presented for right lower quadrant pain back in 2020 with the same workup as today with unremarkable CT pelvis with contrast, also came here last week for chest pain. Normal. Related Data Home Medications ?Medication ?Instructions ?Recorded ?Confirmed albuterol sulfate 90 mcg/actuation inhalation 10/13/24 aerosol inhaler hydroxyzine HCl 25 mg tablet 25 mg PO QID PRN Anxiety 10/13/24 10/13/24 Previous Rx's ?Medication ?Instructions ?Recorded docusate sodium 100 mg capsule 100 mg PO BID #60 caps 10/13/24 (Colace) polyethylene glycol 3350 17 17 g PO DAILY #119 grams 10/13/24 gram/dose oral powder (Miralax) Allergies Allergy/AdvReac Type Severity Reaction Status Date / Time No Known Allergies Allergy Verified 10/13/24 10:49 [facility] Past Medical History Attestation statement: The following information was validated with the patient. Source: old records reviewed and nursing notes reviewed Medical History Nicotine dependence due to vaping tobacco product Social History Social History Substance Use Type: Marijuana Advance Directives: No Advance Directives Information Provided: Yes Do you have a plan to hurt others: No Plan Physical Exam ED Vital Signs: Vital Signs - 24 hr 10/13/24 09:55 10/13/24 11:23 Temperature 97.3 F 98.6 F Pulse Rate 66 77 Respiratory Rate 18 18 Blood Pressure 112/75 125/68 Pulse Oximetry 99 98 Oxygen Delivery Method Room Air Room Air BMI result Body Mass Index 18.7 Const General: cooperative, no acute distress, alert, awake, Physically active, anxious and other (uncomfortable appearing guarding abdomen) Nutritional Appearance: cachectic Orientation/consciousness: patient oriented x3 Limitations: no limitations [facility] Head: Yes normal to inspection, Yes No palpable skull fracture present, Yes normocephalic and Yes atraumatic Ears: hearing grossly normal bilaterally and external ears normal General nose exam: Normal external nose present Face and sinus: Yes normal facial exam Mouth: Normal oral and palatal mucosa present, lip normal, tongue normal and Normal salivary glands and ducts present Teeth and gingiva: dentition normal Throat: Yes posterior oropharynx normal Eyes General: appearance normal, both eyes and all related structures Eyelids: Yes eyelids normal Conjunctivae: conjunctivae normal Sclerae: sclerae normal EOM: EOMs intact bilaterally Neck Neck: Yes no lymphadenopathy Chest Chest palpation & inspection: normal inspection of the chest, normal palpation of entire chest wall and abnormal inspection of the chest Resp Effort & Inspection: normal respiratory effort and able to speak in complete sentences Auscultation: clear to auscultation bilaterally Cardio Jugular venous distension: no JVD Rate: regular rate Rhythm: regular rhythm GI Inspection: Yes normal to inspection Palpation (GI): Firmness to palpation present (GI) and Tenderness to palpation present (GI) in the RLQ, at McBurney's point, obturator sign positive (both reproduce pain in RLQ, negative psoas, guarding RLQ) and with rebound tenderness Auscultation: normal bowel sounds Rectal Exam - Male: Yes deferred General: Yes no CVA tenderness Back/Spine/Pelvis Back: no CVA tenderness Skin General skin exam: no rashes or lesions noted Hair: normal Nails: normal Neuro General: patient oriented x3 Extrem General: Yes normal to inspection and Yes capillary refill normal Course Course Course Narrative: I took sign-out on this patient at 11:00. The CT shows normal appendix. There is mild enteritis seen. There is a moderate amount of stool within the colon and patient is complaining of feeling constipated and not having moved his bowels in several days. I will start him a bowel regimen. Recommend supportive measures. Reviewed worrisome signs and symptoms of when to return to the emergency room. Comfortable plan for discharge home. Medical Decision Making Medical Decision Making MDM Narrative: The subpleural plane 23-year-old male presenting to emergency department today for evaluation of acute onset of right lower quadrant pain. Past medical history significant for recent nicotine withdrawal and anxiety. Upon arrival to ED he appears stable with normal vitals. He is tender abdomen concern for potential intra-abdominal pathology such as listed in differentials below we will obtain an abdominal labs as well CT abdomen and pelvis to rule out potential etiologies requiring further level of care including but not limited to admittance as well as surgery. IV fluids initiated along with pain control. He will be continued to be monitored plan to be updated based on results of imaging and labs. NPO placed. Abdominal labs have been ordered along with imaging we will update plan based on pending results. Patient will continue to be monitored he is stable at this time. No leukocytosis or metabolic dysfunction noted (BUN 17, same from 09/30/24). Case signed out to Jayne Barber NP @ 11:04 am, 10/13/24. Differential Diagnosis Differential Diagnoses: The differential diagnosis associated with the presentation includes appendicitis: This was considered given that he had right lower quadrant pain as well as an acute onset with nausea vomiting and soft peritoneal signs with guarding. He did not appear to be ill or septic or have a white count sepsis workup deferred. He is placed on NPO given pain medication as well as fluids. CT abdomen ordered. SBO: considered CT abd pelvis ordered, pt NPO, and pain medication/zofran given ventral hernia: not palpable, no change in positional change but not worse with food, possible kidney stone: no flank pain or hematuria reported, or sxs.- UA ordered for atypical presentation Constipation: potential least life-treatening somatic pain: abdominal wall strain: no hx of trauma or strain Health anxiety Nicotine withdrawal syndrome- can cause constipation/ abd pain Lab Data MDM Lab Attestation statement: I reviewed the patient's lab results. 10/13/24 10:08 10/13/24 10:09 Labs: Lab Results 10/13/24 10/13/24 10/13/24 Range/Units 10:08 10:09 11:43 WBC 5.1 (4.8-10.8) X10*3/uL RBC 5.23 (4.60-5.80) X10*6/uL Hgb 15.3 (14.0-18.0) g/dl Hct 44.1 (42.0-52.0) % MCV 84.3 (80.0-98.0) fL MCH 29.3 (27.0-33.0) pg MCHC 34.7 (31.0-36.0) g/dl RDW 11.4 (11.0-16.0) % Plt Count 260 (160-400) X10*3/uL MPV 8.2 L (9.4-12.4) fL Immature Gran % (Auto) 0.4 (0.0-0.4) % Neut % (Auto) 45.5 (45-73) % Lymph % (Auto) 44.1 H (20-40) % [place] % (Auto) 8.2 (2-11) % Eos % (Auto) 1.0 (0-4) % Baso % (Auto) 0.8 (0-2) % Lymph # (Auto) 2.3 (1.2-4.9) X10*3/uL [place] # (Auto) 0.4 (0.1-1.2) X10*3/uL Eos # (Auto) 0.1 (0.0-0.4) X10*3/uL Baso # (Auto) 0.0 (0.0-0.2) X10*3/uL Abs Immat Gran (auto) 0.02 (0.00-0.03) X10*3/uL Absolute Neuts (auto) 2.3 (2.0-8.3) x10*3/uL Absolute Nucleated RBC 0.000 (0.0-0.012) X10*3/uL Nucleated RBC % (auto) 0.0 (0.0-0.2) /100WBC Sodium 141 (135-145) mmol/L Potassium 4.7 (3.3-5.1) mmol/L Chloride 108 (96-108) mmol/L Carbon Dioxide 26 (22-29) mmol/L Anion Gap 12 (12-20) BUN 17 H (9-16) mg/dL Creatinine 0.94 (0.5-1.4) mg/dL Estim Creat Clear Calc 100.0 Estimated GFR > 60 Random Glucose 96 (60-115) mg/dL Calcium 9.7 (8.4-10.2) mg/dL Magnesium 1.9 (1.6-2.6) mg/dL Total Bilirubin 1.0 (0.0-1.0) mg/dL Direct Bilirubin 0.2 (0.0-0.5) mg/dL AST 27 (5-37) U/L ALT 27 (0-40) U/L Alkaline Phosphatase 53 (39-117) U/L Troponin I High Sens < 2.7 (<3.5-35.0) ng/L Total Protein 7.2 (6.5-8.0) g/dL Albumin 4.7 (3.5-5.0) g/dL Lipase 14 (8-78) U/L Urine Color Yellow Urine Appearance Clear Urine pH 8.0 (5.0-9.0) Ur Specific [place] >= 1.030 H (1.005-1.025) Urine Protein Negative (Neg-Trace) mg/dL Urine Glucose (UA) Negative (Negative) mg/dL Urine Ketones Negative (Negative) mg/dL Urine Blood Negative (Negative) Urine Nitrite Negative (Negative) Ur Leukocyte Esterase Negative (Negative) Independent Interpretation I performed an independent interpretation of an: CT Scan Radiology Impression Discussion of test interpretation with radiology: I have reviewed the radiologist's reading. Radiologist Impression: [address] [id number] [address] Scan Report Signed Patient: Andrey Palacios MR#: [id number] : 2000 Acct:[id number] Age/Sex: 23 / M ADM Date: 10/13/24 Loc: .ED Attending Dr: Ordering Physician: Judy Serna PA-C Date of Service: 10/13/24 Procedure(s): CT abdomen pelvis w IV con Accession Number(s): [id number] cc: Haile Zavaleta MD; Judy Serna PA-C~ Report Number: [id number]: Total DLP = 351.00 mGy-cm CLINICAL HISTORY: tender RLQ with peritoneal signs CT abdomen and pelvis with contrast Comparison: None Findings: No consolidation or effusion. Appendix is normal, reference coronal image 24. No bowel obstruction or free air. There is diverticulosis without diverticulitis. Gas and fluid seen throughout nondistended small and large bowel. Mild engorgement of the vasa recta. The liver, spleen, gallbladder, adrenal glands and pancreas are unremarkable. Kidneys, ureters and bladder appear within normal limits. No acute osseous finding. Impression: Normal appendix. Findings suggest mild enteritis This document has been electronically signed by: Reginald Maddox MD on 10/13/2024 12:06:38 Medications Administered Discontinued Medications Generic Name Dose Route Start Last Admin Trade Name Freq PRN Reason Stop Dose Admin Sodium Chloride 1,000 mls @ 999 mls/hr 10/13/24 10:25 10/13/24 10:44 Ns IV 10/13/24 11:25 999 mls/hr .Q1H1M ONE Administration Iohexol 100 ml 10/13/24 11:17 10/13/24 11:18 Iohexol 350 Mg/Ml 100 Ml Infus..Btl IV 10/13/24 11:18 85 ml ONCE ONE Administration Ketorolac Tromethamine 15 mg 10/13/24 11:33 10/13/24 11:41 Ketorolac Tromethamine 15 Mg/Ml Vial IVPUSH 10/13/24 11:34 15 mg ONCE ONE Administration Morphine Sulfate 4 mg 10/13/24 10:27 10/13/24 10:49 Morphine Sulfate 4 Mg/Ml Cartridge IVPUSH 10/13/24 10:28 4 mg ONCE ONE Administration Protocol Ondansetron HCl 4 mg 10/13/24 10:27 10/13/24 10:49 Ondansetron Hcl 4 Mg/2 Ml Vial IVPUSH 10/13/24 10:28 4 mg ONCE ONE Administration Discharge Plan Discharge Clinical Impression: Constipation Abdominal pain Qualifiers: Abdominal location: right lower quadrant Qualified Code(s): R10.31 - Right lower quadrant pain Patient Disposition: Home, Self-Care Instructions: Constipation (DC), Acute Abdominal Pain (ED) Additional Instructions: Increase fluids and fiber in the diet Take the MiraLax once or twice daily as needed. Make sure that you are mixing and a clear liquid and drinking immediately. Once your bowels are more regular you may stop taking the MiraLax and Colace. Return for any worsening pain, vomiting or fever greater than 100.4 Prescriptions: New polyethylene glycol 3350 [Miralax] 17 gram/dose powder 17 g PO DAILY Qty: 119 0RF docusate sodium [Colace] 100 mg capsule 100 mg PO BID Qty: 60 0RF No Action albuterol sulfate 90 mcg/actuation HFA aerosol inhaler inhalation hydroxyzine HCl 25 mg Tablet 25 mg PO QID PRN (Reason: Anxiety) Referrals: Haile Zavaleta MD [Primary Care Provider] - 1 week Print Language: Macanese
[2024-10-13 10:34] LABS: Alanine Aminotransferase 27 U/L (0-40); Albumin Level 4.7 g/dL (3.5-5.0); Alkaline Phosphatase 53 U/L (39-117); Anion Gap 12 (12-20); Aspartate Amino Transferase 27 U/L (5-37); Bilirubin Direct 0.2 mg/dL (0.0-0.5); Blood Urea Nitrogen 17 mg/dL (9-16); Calcium 9.7 mg/dL (8.4-10.2); Carbon Dioxide 26 mmol/L (22-29); Chloride 108 mmol/L (96-108); Estimated Glomerular Filt Rate > 60; Glucose Random 96 mg/dL (60-115); Lipase 14 U/L (8-78); Magnesium 1.9 mg/dL (1.6-2.6); Potassium 4.7 mmol/L (3.3-5.1); Sodium 141 mmol/L (135-145); Total Protein 7.2 g/dL (6.5-8.0)
[2024-10-13 10:40] LABS: Troponin-I High Sensitivity < 2.7 ng/L (<3.5-35.0)
[2024-10-13] MEDS: 0.9 % Sodium Chloride 1,000 ML 999 ML IV (10:44)
[2024-10-13] MEDS: ondansetron HCL 4 MG/2 ML VIAL IVPUSH (10:49)
[2024-10-13] MEDS: Morphine Sulfate 4 MG/ML CARTRIDGE IVPUSH (10:49)
[2024-10-13] MEDS: iohexoL 350 MG/ML 100 ML INFUS..BTL IV (11:18)
[2024-10-13 11:23] VITALS: BP 125/68; PULSE 77; RESP 18; TEMP 37; O2SAT 98
[2024-10-13] MEDS: Ketorolac Tromethamine 15 MG/ML VIAL IVPUSH (11:41)
--- NOTE | 2024-10-13 11:48 | PC.NURSE ---
awaiting results from ct scan. ambulated independently with steady gait to bathroom for urine sample. patient continues to have pain, medicated per the MAR. states morphine helped w/ pain. resting quietly in room with even and unlabored respirations. call burks within reach.
[2024-10-13 11:49] LABS: Appearance Urine Clear; Color Urine Yellow; Glucose Urine UA Negative (Negative); Leukocyte Esterase Urine Negative (Negative); Nitrite Urine Negative (Negative); Specific Gravity - Urine >= 1.030 (1.005-1.025); Urine Blood Negative (Negative); Urine Ketones Negative (Negative); Urine Protein Negative (Neg-Trace)
== END 2024-10-13 12:50 | disposition home or self-care (01) ==
PROVIDERS: Physician Assistant Medical; Emergency Provider Internal Medicine; PCP Internal Medicine
DX: R10.31 Right lower quadrant pain (principal); M54.50 Low back pain, unspecified; R11.2 Nausea with vomiting, unspecified; Z79.899 Other long term (current) drug therapy
CPT/HCPCS: 36415; 74177; 80053; 81003; 82248; 83690; 83735; 84484; 85025; 93005; 96374; 96375; 99284; 99285; J1885; J2270; J2405; Q9967

== ENCOUNTER → 2024-10-13 10:01 | Outpatient (BNV) | payer OTHER, SELFPAY | PROVIDERS: Emergency Provider Internal Medicine; PCP Internal Medicine; Visit Provider Internal Medicine Cardiovascular Disease | DX: R07.9 Chest pain, unspecified (principal) | CPT/HCPCS: 93010 ==

== ENCOUNTER → 2024-10-13 10:25 | Outpatient (BNV) | payer OTHER, SELFPAY | PROVIDERS: Emergency Provider Internal Medicine; PCP Internal Medicine; Visit Provider Radiology Vascular & Interventional Radiology | DX: R10.31 Right lower quadrant pain (principal) | CPT/HCPCS: 74177 ==

== ENCOUNTER 2024-10-14 07:15 | Emergency (ER) | payer OTHER, SELFPAY ==
[2024-10-14 07:18] VITALS: BP 120/83; PULSE 92; RESP 24; TEMP 37.1; O2SAT 98; BMI 19.2
[2024-10-14 07:40] LABS: MANUAL DIFF FLAG NO
--- NOTE | 2024-10-14 07:40 | ED_ITS ---
HPI - Abdominal Pain General Chief Complaint: Abdominal Pain Stated Complaint: Abd Pain Time Seen by Provider: 10/14/24 07:32 Source: patient Mode of arrival: ambulatory Limitations: no limitations History of Present Illness ED Provider: DAVE CASH PA-C HPI narrative: 23 year old male with pmhx significant for asthma and anxiety presents to the ED today for evaluation of acute onset abdominal pain which began around 0300. Reports pain is severe and diffuse. Described as a cramping sensation. Last BM approx 7 hours ago. States his stool was loose. No hematochezia or melena. Admits to nausea without vomiting. No hx of abdominal surgeries. Of note, patient was evaluated at our facility yesterday for abdominal pain. lab work was unremarkable. ct scan showed normal appendix. findings concerning for mild enteritis and moderate amount of stool within the colon. he was discharged home on a bowel regiment. He reports taking laxative prior to onset of abdominal pain this morning with one loose BM. Related Data Home Medications ?Medication ?Instructions ?Recorded ?Confirmed albuterol sulfate 90 mcg/actuation inhalation 10/13/24 aerosol inhaler hydroxyzine HCl 25 mg tablet 25 mg PO QID PRN Anxiety 10/13/24 10/13/24 Previous Rx's ?Medication ?Instructions ?Recorded docusate sodium 100 mg capsule 100 mg PO BID #60 caps 10/13/24 (Colace) polyethylene glycol 3350 17 17 g PO DAILY #119 grams 10/13/24 gram/dose oral powder (Miralax) Allergies Allergy/AdvReac Type Severity Reaction Status Date / Time No Known Allergies Allergy Verified 10/14/24 07:19 Review of Systems Review of Systems Yes all other systems are reviewed and are negative PMFSH Past Medical History Attestation statement: The following information was validated with the patient. Source: old records reviewed and nursing notes reviewed Medical History Nicotine dependence due to vaping tobacco product Social History Social History Substance Use Type: Marijuana Advance Directives: No Advance Directives Information Provided: Yes Physical Exam ED Vital Signs: Vital Signs - 24 hr 10/14/24 07:18 10/14/24 11:38 Temperature 98.7 F 98.7 F Pulse Rate 92 92 Respiratory Rate 24 H 24 H Blood Pressure 120/83 120/83 Pulse Oximetry 98 98 Oxygen Delivery Method Room Air Room Air BMI result Body Mass Index 19.2 tachypneic, afebrile General: Appears uncomfortable Skin: Warm, dry, intact. No rashes or lesions. Head: Normocephalic, atraumatic. EENT: Hearing is intact b/l. Conjunctiva clear. PERRLA. EOM intact. Moist mucous membranes.? Neck: Supple without LAD Cardiac: Chest wall symmetric. RRR Lungs: Normal respiratory effort without accessory muscle use. CTA bilaterally Abdomen: soft, ND, diffusely tender without rebound or guarding. active bs throughout. no cvat. Back: No midline spinous or paraspinal tenderness. No step off deformity. Ext: Upper and lower extremities atraumatic, without tenderness, deformity, swelling or erythema Neuro: AOx3. Normal speech. Ambulating with steady gait. Course Course Course Narrative: Slight leukocytosis to 11.9. No left shift. No anemia. H&H stable. Chemistry without acute electrolyte abnormality requiring intervention. No ANDREW. Liver function at baseline. Negative COVID, flu, RSV. I reviewed CT abdomen/pelvis obtained yesterday. Normal appendix. No bowel obstruction. There is diverticulosis without evidence of diverticulitis. Gas and fluid seen throughout nondistended small and large bowel loops with mild engorgement of the basilar recta. Findings suggestive of mild enteritis. > patient was treated with morphine, IV fluids and Zofran. He was feeling much better. Seems more relaxed and comfortable. Denies any pain. > given symptoms began shortly after taking a laxative, symptoms are likely due to laxative effect (abdominal cramping, loose stools). I do not feel the need to really radiate patient today as CTA yesterday was quite unremarkable. Likely gastroenteritis. Zofran was sent to his pharmacy yesterday however he never picked this up. Advised to discontinue laxative use. educated on MALLORY diet. he is comfortable with discharge home at this time. Patient has remained stable throughout ED visit today. Discussed worrisome signs and symptoms and when to return to the ED. All questions answered at this time. Patient is agreeable with disposition and stable for discharge. Medical Decision Making Medical Decision Making MDM Narrative: 23 year old male with pmhx significant for asthma and anxiety presents to the ED today for evaluation of acute onset abdominal pain which began around 0300 this morning. tachypneic to 24. vitals otherwise wnl. afebrile. uncomfortable appearing. Abdomen is soft, nondistended, diffusely tender to palpation without rebound or guarding. Active bowel sounds x4. No CVAT. Differential diagnoses: diverticulitis, diverticulosis, constipation, gastroenteritis, gastritis, laxative affect Abdominal exam without peritoneal signs. No evidence of acute abdomen at this time. Well appearing. Low suspicion for acute hepatobiliary disease (including acute cholecystitis), acute infectious processes (pneumonia, hepatitis, pyelonephritis) vascular catastrophe, bowel obstruction or viscus perforation, testicular torsion, orchitis, epidydymitis. Presentation not consistent with other acute, emergent causes of abdominal pain at this time. Plan: labs, UA, viral swabs, pain control, fluids, serial reassessment Differential Diagnosis Differential Diagnoses: The differential diagnosis associated with the presentation includes as above. Admission/Observation not indicated Lab Data MDM Lab Attestation statement: I reviewed the patient's lab results. as above. 10/14/24 07:36 10/14/24 07:36 Labs: Lab Results 10/14/24 10/14/24 Range/Units 07:36 08:04 WBC 11.9 H (4.8-10.8) X10*3/uL RBC 5.16 (4.60-5.80) X10*6/uL Hgb 15.1 (14.0-18.0) g/dl Hct 42.4 (42.0-52.0) % MCV 82.2 (80.0-98.0) fL MCH 29.3 (27.0-33.0) pg MCHC 35.6 (31.0-36.0) g/dl RDW 11.3 (11.0-16.0) % Plt Count 316 (160-400) X10*3/uL MPV 8.5 L (9.4-12.4) fL Immature Gran % (Auto) 0.3 (0.0-0.4) % Neut % (Auto) 72.2 (45-73) % Lymph % (Auto) 19.3 L (20-40) % [place] % (Auto) 7.4 (2-11) % Eos % (Auto) 0.3 (0-4) % Baso % (Auto) 0.5 (0-2) % Lymph # (Auto) 2.3 (1.2-4.9) X10*3/uL [place] # (Auto) 0.9 (0.1-1.2) X10*3/uL Eos # (Auto) 0.0 (0.0-0.4) X10*3/uL Baso # (Auto) 0.1 (0.0-0.2) X10*3/uL Abs Immat Gran (auto) 0.04 H (0.00-0.03) X10*3/uL Absolute Neuts (auto) 8.6 H (2.0-8.3) x10*3/uL Absolute Nucleated RBC 0.000 (0.0-0.012) X10*3/uL Nucleated RBC % (auto) 0.0 (0.0-0.2) /100WBC Sodium 140 (135-145) mmol/L Potassium 3.9 (3.3-5.1) mmol/L Chloride 109 H (96-108) mmol/L Carbon Dioxide 19 L (22-29) mmol/L Anion Gap 16 (12-20) BUN 13 (9-16) mg/dL Creatinine 1.02 (0.5-1.4) mg/dL Estim Creat Clear Calc 94.7 Estimated GFR > 60 Random Glucose 109 (60-115) mg/dL Calcium 9.6 (8.4-10.2) mg/dL Magnesium 1.9 (1.6-2.6) mg/dL Total Bilirubin 0.7 (0.0-1.0) mg/dL AST 27 (5-37) U/L ALT 29 (0-40) U/L Alkaline Phosphatase 53 (39-117) U/L Total Protein 7.1 (6.5-8.0) g/dL Albumin 4.6 (3.5-5.0) g/dL Lipase 11 (8-78) U/L Influenza Type A (PCR) NEGATIVE (Negative) Influenza Type B (PCR) NEGATIVE (Negative) RSV RNA Qual (PCR) NEGATIVE (Negative) SARS-CoV-2 RNA (RT-PCR) NEGATIVE (Negative) Independent Interpretation I performed an independent interpretation of an: CT Scan Interpretation: ct a/p 10/13/24 without bowel obstruction, normal appendix. Radiology Impression Discussion of test interpretation with radiology: I have reviewed the radiologist's reading. Radiologist Impression: Procedure(s): CT abdomen pelvis w IV con Accession Number(s): [id number] cc: Haile Zavaleta MD; Judy Serna PA-C~ Report Number: [id number]: Total DLP = 351.00 mGy-cm CLINICAL HISTORY: tender RLQ with peritoneal signs CT abdomen and pelvis with contrast Comparison: None Findings: No consolidation or effusion. Appendix is normal, reference coronal image 24. No bowel obstruction or free air. There is diverticulosis without diverticulitis. Gas and fluid seen throughout nondistended small and large bowel. Mild engorgement of the vasa recta. The liver, spleen, gallbladder, adrenal glands and pancreas are unremarkable. Kidneys, ureters and bladder appear within normal limits. No acute osseous finding. Impression: Normal appendix. Findings suggest mild enteritis External Record Review External record reviewed: Inpatient record Prescription Management I considered prescription management with: Pain Medication and Other (zofran) Social Determinants Patient?s care significantly limited by Social Determinants of Health including: Other Social Determinant of Health Medications Administered Discontinued Medications Generic Name Dose Route Start Last Admin Trade Name Freq PRN Reason Stop Dose Admin Sodium Chloride 1,000 mls @ 999 mls/hr 10/14/24 08:00 10/14/24 09:24 Ns IV 10/14/24 09:00 Infused .Q1H1M RAEGAN Infusion Morphine Sulfate 4 mg 10/14/24 07:52 10/14/24 08:01 Morphine Sulfate 4 Mg/Ml Cartridge IVPUSH 10/14/24 07:53 4 mg ONCE ONE Administration Protocol Ondansetron HCl 4 mg 10/14/24 07:52 10/14/24 08:00 Ondansetron Hcl 4 Mg/2 Ml Vial IVPUSH 10/14/24 07:53 4 mg ONCE ONE Administration Critical Care Time Critical Care Time Critical Care Time: Yes Total Critical Care Time: 31 Attestation: Critical care time in the amount of 31 minutes has been provided to the patient in terms of direct patient care, frequent reevaluation on IV morphine, review and interpretation of medical data and results, and management of potentially life-threatening conditions. This is all outside of any medical procedures. Discharge Plan Discharge Clinical Impression: Gastroenteritis Patient Disposition: Home, Self-Care Instructions: Gastroenteritis (ED) Additional Instructions: Your lab workup today was reassuring.? Your symptoms are most consistent with a viral stomach bug, also known as gastroenteritis.? The treatment for this is supportive care. Symptoms usually resolve on their own in 48-72 hours.? The recommendation is rest and lots of oral hydration.? For the next 24 hours, stick to a MALLORY diet (bananas rice, applesauce, tea, and toast) Zofran is an anti-nausea medication. This was sent to your pharmacy yesterday. Take this as needed for nausea/vomiting. You can also try over the counter Pepto Bismol or Imodium as needed for upset stomach and diarrhea.? Follow up with your primary care provider this week. If you develop new or worsening symptoms call 911 or come back to the ER for further evaluation. Prescriptions: No Action albuterol sulfate 90 mcg/actuation HFA aerosol inhaler inhalation hydroxyzine HCl 25 mg Tablet 25 mg PO QID PRN (Reason: Anxiety) polyethylene glycol 3350 [Miralax] 17 gram/dose powder 17 g PO DAILY Qty: 119 0RF docusate sodium [Colace] 100 mg capsule 100 mg PO BID Qty: 60 0RF Referrals: Haile Zavaleta MD [Primary Care Provider] - Stand Alone Forms: Work/School Release Interventions: ED Discharge Assessment Last Done: 10/14/24 11:38 Discharge Date/Time: 10/14/24 11:40 Print Language: Indonesian
[2024-10-14 07:43] LABS: Basophils Absolute Auto 0.1 X10*3/uL (0.0-0.2); Basophils Percent Auto 0.5 % (0-2); Eosinophils Percent Auto 0.3 % (0-4); Hematocrit 42.4 % (42.0-52.0); Hemoglobin 15.1 g/dl (14.0-18.0); Imm Gran Abs Auto 0.04 X10*3/uL (0.00-0.03); Imm Gran Pct Auto 0.3 % (0.0-0.4); Lymphocytes Absolute Auto 2.3 X10*3/uL (1.2-4.9); Lymphocytes Percent Auto 19.3 % (20-40); Mean Corpuscular HGB Conc 35.6 g/dl (31.0-36.0); Mean Corpuscular Hemoglobin 29.3 pg (27.0-33.0); Mean Corpuscular Volume 82.2 fL (80.0-98.0); Mean Platelet Volume 8.5 fL (9.4-12.4); Monocytes Absolute Auto 0.9 X10*3/uL (0.1-1.2); Monocytes Percent Auto 7.4 % (2-11); Neutrophils Absolute Auto 8.6 x10*3/uL (2.0-8.3); Neutrophils Percent Auto 72.2 % (45-73); Platelet Count 316 X10*3/uL (160-400); Red Blood Count 5.16 X10*6/uL (4.60-5.80); Red Cell Distribution Width 11.3 % (11.0-16.0); White Blood Count 11.9 X10*3/uL (4.8-10.8)
[2024-10-14 07:58] LABS: Alanine Aminotransferase 29 U/L (0-40); Albumin Level 4.6 g/dL (3.5-5.0); Alkaline Phosphatase 53 U/L (39-117); Anion Gap 16 (12-20); Aspartate Amino Transferase 27 U/L (5-37); Bilirubin Total 0.7 mg/dL (0.0-1.0); Blood Urea Nitrogen 13 mg/dL (9-16); Calcium 9.6 mg/dL (8.4-10.2); Carbon Dioxide 19 mmol/L (22-29); Chloride 109 mmol/L (96-108); Creatinine Clr Calc Pharmacy 94.7; Estimated Glomerular Filt Rate > 60; Glucose Random 109 mg/dL (60-115); Lipase 11 U/L (8-78); Magnesium 1.9 mg/dL (1.6-2.6); Potassium 3.9 mmol/L (3.3-5.1); Sodium 140 mmol/L (135-145); Total Protein 7.1 g/dL (6.5-8.0)
[2024-10-14] MEDS: 0.9 % Sodium Chloride 1,000 ML 999 ML IV (08:00)
[2024-10-14] MEDS: ondansetron HCL 4 MG/2 ML VIAL IVPUSH (08:00)
[2024-10-14] MEDS: Morphine Sulfate 4 MG/ML CARTRIDGE IVPUSH (08:01)
[2024-10-14 09:00] LABS: Influenza A PCR NEGATIVE (Negative); Influenza B PCR NEGATIVE (Negative); Resp Syncy Virus RNA Qual PCR NEGATIVE (Negative); SARS COV2 PCR INHOUSE NEGATIVE (Negative)
[2024-10-14 11:38] VITALS: BP 120/83; PULSE 92; RESP 24; TEMP 37.1; O2SAT 98
== END 2024-10-14 11:40 | disposition home or self-care (01) ==
PROVIDERS: Physician Assistant Medical; Emergency Provider Emergency Medicine; PCP Internal Medicine
DX: K52.9 Noninfective gastroenteritis and colitis, unspecified (principal); R10.2 Pelvic and perineal pain; R11.0 Nausea; R06.82 Tachypnea, not elsewhere classified; R25.2 Cramp and spasm; J45.909 Unspecified asthma, uncomplicated; Z03.818 Encounter for observation for suspected exposure to other biological agents ruled out; Z79.899 Other long term (current) drug therapy
CPT/HCPCS: 0241U; 36415; 80053; 83690; 83735; 85025; 96361; 96374; 96375; 99283; 99284; J2270; J2405

== ENCOUNTER 2024-11-09 21:21 | Emergency (ER) | payer OTHER, SELFPAY ==
--- NOTE | 2024-11-09 | ECG_ITS ---
Test Reason : SOB/LUNG PAIN/CP Blood Pressure : */* mmHG Vent. Rate : 79 BPM Atrial Rate : 79 BPM P-R Int : 132 ms QRS Dur : 96 ms QT Int : 332 ms P-R-T Axes : 78 79 69 degrees QTcB Int : 380 ms Normal sinus rhythm Right atrial enlargement Early repolarization Borderline ECG When compared with ECG of 13-Oct-2024 10:01, Questionable change in QRS axis ST elevation now present in Inferior leads T wave inversion no longer evident in Inferior leads Referred By: Generic ED Physician Electronically Signed By: MELINDA MANRIQUE
--- NOTE | ~2024-11-09 | XR_ITS ---
CLINICAL HISTORY: cp sob 2 view chest x-ray Comparison: None Findings: The lungs are clear. Heart size is normal. No acute fracture. IMPRESSION: 1. No acute findings. This document has been electronically signed by: Ernst Barrientos MD on 11/09/2024 22:50:19
[2024-11-09 21:29] VITALS: BP 144/79; PULSE 73; RESP 16; TEMP 36.6; O2SAT 100; BMI 18.6
[2024-11-09 21:51] LABS: MANUAL DIFF FLAG NO
[2024-11-09 21:52] LABS: Basophils Absolute Auto 0.1 X10*3/uL (0.0-0.2); Basophils Percent Auto 0.9 % (0-2); Eosinophils Absolute Auto 0.1 X10*3/uL (0.0-0.4); Eosinophils Percent Auto 1.7 % (0-4); Hematocrit 41.5 % (42.0-52.0); Hemoglobin 14.3 g/dl (14.0-18.0); Imm Gran Abs Auto 0.02 X10*3/uL (0.00-0.03); Imm Gran Pct Auto 0.3 % (0.0-0.4); Lymphocytes Absolute Auto 2.7 X10*3/uL (1.2-4.9); Mean Corpuscular HGB Conc 34.5 g/dl (31.0-36.0); Mean Corpuscular Hemoglobin 28.4 pg (27.0-33.0); Mean Corpuscular Volume 82.3 fL (80.0-98.0); Mean Platelet Volume 8.1 fL (9.4-12.4); Monocytes Absolute Auto 0.5 X10*3/uL (0.1-1.2); Monocytes Percent Auto 8.1 % (2-11); Neutrophils Absolute Auto 2.5 x10*3/uL (2.0-8.3); Platelet Count 300 X10*3/uL (160-400); Red Blood Count 5.04 X10*6/uL (4.60-5.80); Red Cell Distribution Width 11.2 % (11.0-16.0); White Blood Count 5.8 X10*3/uL (4.8-10.8)
[2024-11-09 22:07] LABS: Alanine Aminotransferase 26 U/L (0-40); Albumin Level 4.4 g/dL (3.5-5.0); Alkaline Phosphatase 56 U/L (39-117); Anion Gap 12 (12-20); Aspartate Amino Transferase 22 U/L (5-37); Bilirubin Total 0.6 mg/dL (0.0-1.0); Blood Urea Nitrogen 18 mg/dL (9-16); Calcium 9.6 mg/dL (8.4-10.2); Carbon Dioxide 26 mmol/L (22-29); Chloride 105 mmol/L (96-108); Creatinine Clr Calc Pharmacy 103.7; Estimated Glomerular Filt Rate > 60; Glucose Random 106 mg/dL (60-115); Potassium 3.8 mmol/L (3.3-5.1); Sodium 139 mmol/L (135-145); Total Protein 6.8 g/dL (6.5-8.0)
[2024-11-09 22:14] LABS: Troponin-I High Sensitivity < 2.7 ng/L (<3.5-35.0)
[2024-11-09 22:29] LABS: Influenza A PCR NEGATIVE (Negative); Influenza B PCR NEGATIVE (Negative); Resp Syncy Virus RNA Qual PCR NEGATIVE (Negative); SARS COV2 PCR INHOUSE NEGATIVE (Negative)
[2024-11-10 00:12] VITALS: BP 119/73; PULSE 68; RESP 20; TEMP 36.6; O2SAT 100
--- NOTE | 2024-11-10 00:41 | ED.GENADULT ---
HPI - General Adult General Chief complaint: Dyspnea Stated complaint: lung pain Time Seen by Provider: 11/10/24 00:32 History of Present Illness ED Provider: Dr. Amato HPI narrative: 23 y/o M patient; PMH asthma; presents from home reporting chest discomfort that began this morning, resolved throughout the day, and then worsened tonight. He reports an associated dry, non-productive cough. He also notes increased fatigue and an unintentional 10lb weight loss over the last approx 1 month. He otherwise denies: fever or chills, nausea/vomiting, abdominal pain, syncope. Related Data Home Medications ?Medication ?Instructions ?Recorded ?Confirmed albuterol sulfate 90 mcg/actuation inhalation 10/13/24 aerosol inhaler hydroxyzine HCl 25 mg tablet 25 mg PO QID PRN Anxiety 10/13/24 10/13/24 Previous Rx's ?Medication ?Instructions ?Recorded docusate sodium 100 mg capsule 100 mg PO BID #60 caps 10/13/24 (Colace) polyethylene glycol 3350 17 17 g PO DAILY #119 grams 10/13/24 gram/dose oral powder (Miralax) Allergies Allergy/AdvReac Type Severity Reaction Status Date / Time No Known Allergies Allergy Verified 11/09/24 21:33 Review of Systems Review of Systems: Yes all other systems are reviewed and are negative PMFSH Past Medical History Attestation statement: The following information was validated with the patient. Source: old records reviewed Medical History Nicotine dependence due to vaping tobacco product Social History Social History Substance Use Type: Marijuana Advance Directives: No Advance Directives Information Provided: Yes Do you have a plan to hurt others: No Plan Physical Exam ED Vital Signs: Vital Signs - 24 hr 11/09/24 21:29 11/10/24 00:12 Temperature 97.8 F 97.9 F Pulse Rate 73 68 Respiratory Rate 16 20 Blood Pressure 144/79 H 119/73 Pulse Oximetry 100 100 Oxygen Delivery Method Room Air Room Air BMI result Body Mass Index 18.6 Patient is afebrile and hemodynamically stable. Const General: cooperative and no acute distress HENMT Head: Yes normal to inspection and Yes atraumatic Eyes General: appearance normal, both eyes and all related structures Pupils: Equal, round and reactive pupils present EOM: EOMs intact bilaterally Neck Neck: Yes normal visual inspection, Yes full ROM, Yes supple and No tender Chest Chest palpation & inspection: normal inspection of the chest and normal palpation of entire chest wall Resp Effort & Inspection: normal respiratory effort, able to speak in complete sentences, no cough and no respiratory distress Auscultation: clear to auscultation bilaterally Cardio Rate: regular rate Rhythm: regular rhythm Peripheral pulses: Peripheral pulses 2+ throughout GI Inspection: Yes normal to inspection, No Abdominal wall edema and No distended Palpation (GI): Soft to palpation, not firm, nontender, no guarding and not rigid Auscultation: normal bowel sounds Back/Spine/Pelvis Back: No back tenderness Neuro Cranial nerves: Yes Equal, round and reactive pupils present Course Course Course Narrative: Patient is afebrile and hemodynamically stable. Differentials include but not limited to: viral illness, costochondritis, ACS, pneumonia, pneumothorax. Reviewed triage ordered work up. CXR unremarkable for acute abnormalities. Labs reviewed. No leukocytosis. Troponin <2.7, unlikely ACS given >6 hours of chest discomfort. COVID/Flu/RSV negative. Plan: Discharge to home with PCP follow up Return precautions given Medical Decision Making Lab Data 11/09/24 21:46 11/09/24 21:46 Labs: Lab Results 11/09/24 Range/Units 21:46 WBC 5.8 (4.8-10.8) X10*3/uL RBC 5.04 (4.60-5.80) X10*6/uL Hgb 14.3 (14.0-18.0) g/dl Hct 41.5 L (42.0-52.0) % MCV 82.3 (80.0-98.0) fL MCH 28.4 (27.0-33.0) pg MCHC 34.5 (31.0-36.0) g/dl RDW 11.2 (11.0-16.0) % Plt Count 300 (160-400) X10*3/uL MPV 8.1 L (9.4-12.4) fL Immature Gran % (Auto) 0.3 (0.0-0.4) % Neut % (Auto) 43.0 L (45-73) % Lymph % (Auto) 46.0 H (20-40) % [place] % (Auto) 8.1 (2-11) % Eos % (Auto) 1.7 (0-4) % Baso % (Auto) 0.9 (0-2) % Lymph # (Auto) 2.7 (1.2-4.9) X10*3/uL [place] # (Auto) 0.5 (0.1-1.2) X10*3/uL Eos # (Auto) 0.1 (0.0-0.4) X10*3/uL Baso # (Auto) 0.1 (0.0-0.2) X10*3/uL Abs Immat Gran (auto) 0.02 (0.00-0.03) X10*3/uL Absolute Neuts (auto) 2.5 (2.0-8.3) x10*3/uL Absolute Nucleated RBC 0.000 (0.0-0.012) X10*3/uL Nucleated RBC % (auto) 0.0 (0.0-0.2) /100WBC Sodium 139 (135-145) mmol/L Potassium 3.8 (3.3-5.1) mmol/L Chloride 105 (96-108) mmol/L Carbon Dioxide 26 (22-29) mmol/L Anion Gap 12 (12-20) BUN 18 H (9-16) mg/dL Creatinine 0.90 (0.5-1.4) mg/dL Estim Creat Clear Calc 103.7 Estimated GFR > 60 Random Glucose 106 (60-115) mg/dL Calcium 9.6 (8.4-10.2) mg/dL Total Bilirubin 0.6 (0.0-1.0) mg/dL AST 22 (5-37) U/L ALT 26 (0-40) U/L Alkaline Phosphatase 56 (39-117) U/L Troponin I High Sens < 2.7 (<3.5-35.0) ng/L Total Protein 6.8 (6.5-8.0) g/dL Albumin 4.4 (3.5-5.0) g/dL TSH 0.98 (0.32-4.0) uIU/mL Influenza Type A (PCR) NEGATIVE (Negative) Influenza Type B (PCR) NEGATIVE (Negative) RSV RNA Qual (PCR) NEGATIVE (Negative) SARS-CoV-2 RNA (RT-PCR) NEGATIVE (Negative) Independent Interpretation I performed an independent interpretation of an: EKG Interpretation: NSR 79BPM with + early repolarized pattern. Compared to prior from 10/13/2024 and no significant abnormalities. Radiology Impression Discussion of test interpretation with radiology: I have reviewed the radiologist's reading. Radiologist Impression: CLINICAL HISTORY: cp sob 2 view chest x-ray Comparison: None Findings: The lungs are clear. Heart size is normal. No acute fracture. IMPRESSION: 1. No acute findings. This document has been electronically signed by: Ernst Barrientos MD on 11/09/2024 22:50:19 Discharge Plan Discharge Clinical Impression: Chest pain Patient Disposition: Home, Self-Care Instructions: Chest Pain (DC) Additional Instructions: As we discussed, you were seen in the emergency department for chest pain. Your work up today was reassuring with normal labs and chest XR. Recommend you follow up with your PCP within the next 1 - 2 days for re-evaluation and to discuss your recent emergency department visit. Return to the emergency department for: Difficulty breathing Passing out Worsening or changing chest pain Prescriptions: No Action albuterol sulfate 90 mcg/actuation HFA aerosol inhaler inhalation hydroxyzine HCl 25 mg Tablet 25 mg PO QID PRN (Reason: Anxiety) polyethylene glycol 3350 [Miralax] 17 gram/dose powder 17 g PO DAILY Qty: 119 0RF docusate sodium [Colace] 100 mg capsule 100 mg PO BID Qty: 60 0RF Print Language: Moroccan
[2024-11-10 01:23] LABS: Thyroid Stimulating Hormone 0.98 uIU/mL (0.32-4.0)
== END 2024-11-10 02:00 | disposition home or self-care (01) ==
PROVIDERS: Emergency Provider Emergency Medicine; PCP Internal Medicine
DX: R07.89 Other chest pain (principal); R06.02 Shortness of breath; R05.9 Cough, unspecified; Z79.899 Other long term (current) drug therapy; Z03.818 Encounter for observation for suspected exposure to other biological agents ruled out
CPT/HCPCS: 0241U; 71046; 80053; 84443; 84484; 85025; 93005; 99283

== ENCOUNTER → 2024-11-09 21:39 | Outpatient (BNV) | payer OTHER, SELFPAY | PROVIDERS: Emergency Provider Emergency Medicine; PCP Internal Medicine; Visit Provider Internal Medicine | DX: I51.7 Cardiomegaly (principal); I21.19 ST elevation (STEMI) myocardial infarction involving other coronary artery of inferior wall; I49.49 Other premature depolarization | CPT/HCPCS: 93010 ==

== ENCOUNTER → 2024-11-09 21:45 | Outpatient (BNV) | payer OTHER, SELFPAY | PROVIDERS: PCP Internal Medicine; Visit Provider Student in an Organized Health Care Education/Training Program | DX: R07.9 Chest pain, unspecified (principal); R06.02 Shortness of breath | CPT/HCPCS: 71046 ==

== ENCOUNTER 2024-11-17 02:15 | Emergency (ER) | payer OTHER, SELFPAY ==
--- NOTE | ~2024-11-17 | CT_ITS ---
CLINICAL HISTORY: periumbillical and RLQ pain CT ABDOMEN AND PELVIS WITH CONTRAST COMPARISON: 10/13/2024. FINDINGS: Lung bases are unremarkable. A few tiny subcentimeter low-attenuation lesions are again noted within the liver which are too small to characterize. Gallbladder is unremarkable. No visible stone. No pericholecystic inflammation. Stomach is underdistended which precludes accurate assessment. No CT evidence of acute pancreatitis. Spleen and adrenal glands are unremarkable. Both kidneys are unremarkable. No hydronephrosis or obstructing stone. Urinary bladder is not optimally distended. Abdominal aorta is normal in caliber, without evidence of an aneurysm or dissection. No evidence of a bowel obstruction or free air. No pericolonic inflammation. Appendix is visualized and there is no evidence of acute appendicitis. No lymphadenopathy or loculated fluid collection. No bowel containing hernia. The bone windows demonstrate no acute abnormalities. IMPRESSION: 1. No acute disease. No evidence of a bowel obstruction or free air. No pericolonic inflammation. Appendix is visualized and there is no evidence of acute appendicitis. 2. No hydronephrosis or obstructing stone. 3. Additional findings are detailed above. This document has been electronically signed by: John Ellsworth M.D. on 11/17/2024 05:19:08
[2024-11-17 02:21] VITALS: BP 136/70; PULSE 87; RESP 16; TEMP 36.8; O2SAT 97; BMI 19.3
[2024-11-17 02:39] LABS: Glucose, Whole Blood 101 mg/dL (60-115)
[2024-11-17 02:43] LABS: MANUAL DIFF FLAG NO
[2024-11-17 02:44] LABS: Basophils Percent Auto 0.6 % (0-2); Eosinophils Absolute Auto 0.2 X10*3/uL (0.0-0.4); Eosinophils Percent Auto 2.6 % (0-4); Hematocrit 40.2 % (42.0-52.0); Hemoglobin 14.1 g/dl (14.0-18.0); Imm Gran Abs Auto 0.01 X10*3/uL (0.00-0.03); Imm Gran Pct Auto 0.2 % (0.0-0.4); Lymphocytes Absolute Auto 2.4 X10*3/uL (1.2-4.9); Lymphocytes Percent Auto 36.2 % (20-40); Mean Corpuscular HGB Conc 35.1 g/dl (31.0-36.0); Mean Corpuscular Hemoglobin 29.2 pg (27.0-33.0); Mean Corpuscular Volume 83.2 fL (80.0-98.0); Mean Platelet Volume 8.4 fL (9.4-12.4); Monocytes Absolute Auto 0.8 X10*3/uL (0.1-1.2); Monocytes Percent Auto 11.8 % (2-11); Neutrophils Absolute Auto 3.2 x10*3/uL (2.0-8.3); Neutrophils Percent Auto 48.6 % (45-73); Platelet Count 271 X10*3/uL (160-400); Red Blood Count 4.83 X10*6/uL (4.60-5.80); Red Cell Distribution Width 11.3 % (11.0-16.0); White Blood Count 6.6 X10*3/uL (4.8-10.8)
[2024-11-17 02:50] LABS: Appearance Urine Clear; Color Urine Yellow; Glucose Urine UA Negative (Negative); Leukocyte Esterase Urine Small (1+) (Negative); Nitrite Urine Negative (Negative); UMIC TRIGGER UACC YES; Urine Blood Negative (Negative); Urine Ketones Trace mg/dL (Negative); Urine Protein Trace mg/dL (Neg-Trace)
[2024-11-17 02:52] LABS: Bacteria Urine None Seen (None Seen); Hyaline Casts Urine 0-2 /LPF (0-2); RBC Urine 0-2 /HPF (0-2); Squamous Epithelial Cell Urine 0-2 /HPF (0-2); UACC Culture Trigger YES
--- OUTSIDE RECORDS SUMMARY | 2024-11-17 02:53 | XMS_ITS | Clinical Summary ---
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 hydrOXYzine HCl (Atarax) 25 MG tablet Take 1 tablet (25 mg) by mouth every 6 (six) hours if needed for anxiety. 120 tablet 3 5 Active albuterol 108 (90 Base) MCG/ACT inhaler Inhale 2 puffs every 6 (six) hours if needed for wheezing. 18 g 1 5 08/15/19 26 Active psyllium (Metamucil) 58.6 % packet Take 1 packet (3.4 g of fiber) by mouth 2 times daily. Mix and drink with at least 8 ounces of water or juice. 60 packet 11 5 09/25/19 26 Active nicotine (Nicoderm CQ) 21 MG/24HR patchIndications: Vaping nicotine dependence, non-tobacco product Place 1 patch on the skin 1 (one) time each day at the same time. 30 patch 5 Active bisacodyl (Dulcolax) 5 MG EC tabletIndications :Other constipation Take 1 tablet (5 mg) by mouth if needed each day for constipatio n. Do not crush, chew, or split. 30 tablet 5 10/28/19 25 Active Problems Problem Noted Date Diagnosed Date Left arm pain 10/25/2024 Assessment & Plan (10/25/2024 9:44 AM EDT): Will order a left shoulder xray, and will refer to PT Physical exam 05/07/2024 Assessment & Plan (05/07/2024 7:01 PM EDT): Unremarkable physical exam, will order labs for further evaluation Anxiety 04/11/2023 Assessment & Plan (10/25/2024 9:45 AM EDT): Improved with hydroxyzine, will refer to for evaluation, no suicidal/homicidal ideas Assessment & Plan (05/07/2024 6:59 PM EDT): Controlled on hydroxyzine, no changes will be made, no suicidal/homicidal ideas Assessment & Plan (04/08/2024 1:38 PM EDT): Much controlled with hydroxyzine as needed, he is also doing medical marijuana. He is not interested in therapy, refers has a therapist at work [...] of sexually transmitted disease exposure 04/11/2023 Encounters * This document contains information received from the source organization and may not represent a complete record from that organization. Date Type Department Care Team Description 11/12/[address] [address] Haile Zavaleta MD Appointment Request; Nurse Triage 10/25/2024 8:30 AM EDT Telemedicine [facility] [address] [place] [address] Haile Zavaleta MD Left arm pain (Primary Dx); Anxiety 10/25/2024 Travel 10/13/2024 Orders Only GENERIC EXTERNAL DATA DEPARTMENT Provider, Generic External Data 09/27/2024 1:30 PM EDT Office Visit [facility] [address] [place] [address] Keri Candelario MD Vaping nicotine dependence, non-tobacco product (Primary Dx); Other constipation 09/27/2024 Travel 09/27/[address] [address] Haile Zavaleta MD Nurse Triage 09/24/2024 11:15 AM EDT Telemedicine [facility] [address] [place] [address] Haile Zavaleta MD Strain of left subscapularis muscle, sequela (Primary Dx); Slow transit constipation 09/24/2024 Travel 09/24/2024 Telephone [facility] [address] [place] [address] Haile Zavaleta MD Nurse Triage 09/23/2024 Telephone [facility] [address] [place] [address] Haile Zavaleta MD No Show 09/19/[address] [address] Haile Zavaleta MD Nurse Triage 09/16/2024 Telephone [facility] [address] [place] [address] Haile Zavaleta MD Nurse Triage from Last 3 Months Family History Medical [...] your housing situation today? I have rosio gabino 04/30/[address] you li [...] Upcoming Encounters Date Type Department Care Team ([facility] st Contact Info) Description 11/28/2024 11:15 AM EDT Telemedicine [facility] [address] [place] [address] Haile Zavaleta MD [address] [place], [place] [phone] Health Maintenance Due Date Last Done Comments Chlamydia and Gonorrhea Screening 2001 HIV Screening 2001 Alcohol/Substance Use Screening 2013 Family Planning (PISQ) 2016 HPV Vaccines (3 - 3-dose series) 08/26/2019 06/03/2019, 05/17/2017 Hepatitis C Screening 12/24/2019 DTaP/Tdap/Td Vaccines (1 - Tdap) 2020 Hepatitis B Vaccines (1 of 3 - 19+ 3-dose series) 2020 Pneumococcal Vaccine: Pediatrics (0 to 5 Years) and At-Risk Patients (6 to 49) Years) (1 of 2 - PCV) 2020 COVID-19 Vaccine (2 - 2023-2 5 [...] Procedure Name Priority Date/Time Associated Diagnosis Comments URINALYSIS, COMPLETE, WITH REFLEX TO CULTURE Routine 11/17/2024 2:43 AM EDT CBC WITH AUTO DIFFERENTIAL Routine 11/17/2024 2:39 AM EDT GLUCOSE, WHOLE BLOOD Routine 11/17/2024 2:34 AM EDT XR CHEST 2 VIEWS Routine 11/09/2024 10:5 0 PM EDT TSH Routine 11/09/2024 9:46 PM EDT HIGH SENSITIVITY TROPONIN I Routine 11/09/2024 9:46 PM EDT COMPREHENSIVE METABOLIC PANEL Routine 11/09/2024 9:46 PM EDT CBC WITH AUTO DIFFERENTIAL Routine 11/09/2024 9:46 PM EDT SARS COV2/INFLUENZA A/B AND RSV RNA QL NAAT Routine 11/09/2024 9:46 PM EDT SARS COV2/INFLUENZA A/B AND RSV RNA QL NAAT Routine 10/14/2024 8:04 AM EDT LIPASE Routine 10/14/2024 7:36 AM EDT MAGNESIUM Routine 10/14/2024 7:36 AM EDT COMPREHENSIVE METABOLIC PANEL Routine 10/14/2024 7:36 AM EDT CBC WITH AUTO DIFFERENTIAL Routine 10/14/2024 7:[address] ABDOMEN PELVIS W CONTRAST Routine 10/13/2024 12:06 PM EDT URINALYSIS WITH REFLEX MICROSCOPIC Routine 10/13/2024 11:43 AM EDT LIPASE Routine 10/13/2024 10:09 AM EDT MAGNESIUM Routine 10/13/2024 10:09 AM EDT HEPATIC FUNCTION PANEL Routine 10/13/2024 10:09 AM EDT COMPREHENSIVE METABOLIC PANEL Routine 10/13/2024 10:09 AM EDT HIGH SENSITIVITY TROPONIN I Routine 10/13/2024 10:08 AM EDT CBC WITH AUTO DIFFERENTIAL Routine 10/13/2024 10:08 AM EDT BASIC METABOLIC PANEL Routine 09/27/2024 2:04 PM EDT Other constipation TSH W/REFLEX TO FT4 Routine 09/27/2024 2 :04 PM EDT Other constipation LIPID PANEL, STANDARD Routine 06/04/2024 10:43 AM EST Underweight (BMI < 18.5) from Last 3 Months or Most Recently Relevant to Health Maintenance Results * (ABNORMAL) Urinalysis, Complete, with Reflex to Culture (11/17/2024 2:43 AM EDT) Color Urine Yellow [facility] Appearance Urine Clear [facility] PH 8.0 5.0 - 9.0 [facility] Glucose Urine UA Negative Negative mg/dL [facility] Urine Blood Negative Negative [facility] Specific [place] - Urine 1.020 1.005 - 1.025 [facility] Urine Protein Trace Neg-Trace mg/dL [facility] Urine Ketones Trace Negative mg/dL [facility] Nitrite Urine Negative Negative [facility] Leukocyte Esterase Urine Small (1+)(A) Negative [facility] 11/17/2024 2:43 AM EDT 11/17/2024 2:46 AM EDT Narrative [facility] - 11/17/2024 2:50 AM EDT [id number], Clean Catch us Generic External Data Provider LAB URINE ORDERAB LES Final Result [facility] [address] [place] [phone] * (ABNORMAL) CBC auto differential (11/17/2024 2:39 AM EDT) Only the most recent of4 resultswithin the time period is included. White Blood Count 6.6 4.8 - 10.8 X10*3/uL [facility] Red Blood Count 4.83 4.60 - 5.80 X10*6/uL [facility] Hemoglobin 14.1 14.0 - 18.0 g/dl [facility] Hematocrit 40.2(L) 42.0 - 52.0 % [facility] Mean Corpuscular Volume 83.2 80.0 - 98.0 fL [facility] Mean Corpuscular Hemoglobin 29.2 27.0 - 33.0 pg [facility] Mean Corpuscular HGB Conc 35.1 31.0 - 36.0 g/dl [facility] Red Cell Distribution Width 11.3 11.0 - 16.0 % [facility] Platelet Count 271 160 - 400 X10*3/uL [facility] Mean Platelet Volume 8.4(L) 9.4 - 12.4 fL [facility] Neutrophils Percent Auto 48.6 45 - 73 % [facility] Imm Gran Pct Auto 0.2 0.0 - 0.4 % [facility] Lymphocytes Percent Auto 36.2 20 - 40 % [facility] Monocytes Percent Auto 11.8(H) 2 - 11 % [facility] Eosinophils Percent Auto 2.6 0 - 4 % [facility] Basophils Percent Auto 0.6 0 - 2 % [facility] NRBC Pct Auto 0.0 0.0 - 0.2 /100WBC [facility] Neutrophils Absolute Auto 3.2 2.0 - 8.3 x10*3/uL [facility] Imm Gran Abs Auto 0.01 0.00 - 0.03 X10*3/uL [facility] Lymphocytes Absolute Auto 2.4 1.2 - 4.9 X10*3/uL [facility] Monocytes Absolute Auto 0.8 0.1 - 1.2 X10*3/uL [facility] Eosinophils Absolute Auto 0.2 0.0 - 0.4 X10*3/uL [facility] Basophils Absolute Auto 0.0 0.0 - 0.2 X10*3/uL [facility] NRBC Abs Auto 0.000 0.0 - 0.012 X10*3/uL [facility] 11/17/2024 2:39 AM EDT 11/17/2024 2:41 AM EDT us Generic External Data Provider LAB BLOOD ORDERAB LES Final Result Performing Organization Address City/[facility]/ZIP Co de Phone Number [facility] [address] [place] [phone] * Glucose, Whole Blood (11/17/2024 2:34 AM EDT) Glucose, Whole Blood 101 60 - 115 mg/dL [facility] Comment:METER #: [id number] 11/17/2024 2:34 AM EDT 11/17/2024 2:38 AM EDT us Generic External Data Provider LAB BLOOD ORDERAB LES Final Result Performing Organization Address [facility] Co de Phone Number [facility] [address] [place] [phone] * XR Chest 2 Views (11/09/2024 10:50 PM EDT) Anatomical Region Laterality Modality Chest Radiographic Jessica ging 11/09/2024 10:5 0 PM EDT Narrative 11/09/2024 10:51 PM EDT ? [facility] ?[address] ?[place] [address] ?XRay Report ? Signed ? Patient: Philip,Andrey ?MR#: [id number] ?? 558 ? : 2000 ?Acct:[id number] ? Age/Sex: 23 / M ?ADM Date: 11/09/24 ? Loc: HO.ED ? Attending Dr: ? Ordering Physician: Generic ED Physician ?? Date of Service: 11/09/24 ?? Procedure(s): XR chest 2V ?? Accession Number(s): [id number] ? cc: Haile Zavaleta MD; Generic ED Physician ? CLINICAL HISTORY: cp sob ? 2 view chest x-ray ? Comparison: None ? Findings: ?? The lungs are clear. ?? Heart size is normal. ?? No acute fracture. ? IMPRESSION: ?? 1. No acute findings. ? This document has been electronically signed by: Ernst Barrientos MD on ?? 11/09/2024 22:50:19 ? Dictated By: ?Ernst Barrientos MD ? Signed By: ?<Electronically signed by Ernst Barrientos MD in OV> ? 11/09/242250 ? DD/ 49 ? TD/TT: 11/09/242249 ? Scrap Burner: ? Procedure Note Sen Crooks - 11/09/[address] [address] XRay Report Signed Patient: Andrey PalaciosMR#: [id number] 558 : 2000Acct:[id number] Age/Sex: 23 / MADM Date: 11/09/24 Loc: HO.ED Attending Dr: Ordering Physician: Generic ED Physician Date of Service: 11/09/24 Procedure(s): XR chest 2V Accession Number(s): [id number] cc: Haile Zavaleta MD; Generic ED Physician CLINICAL HISTORY: cp sob 2 view chest x-ray Comparison: None Findings: The lungs are clear. Heart size is normal. No acute fracture. IMPRESSION: 1. No acute findings. This document has been electronically signed by: Ernst Barrientos MD on 11/09/2024 22:50:19 Dictated By: Ernst Barrientos MD Signed By: <Electronically signed by Ernst Barrientos MD in OV> 11/09/242250 DD/ 49 TD/TT: 11/09/242249 Scrap Burner: [facility] External Provider IMG XR PROCEDURES Edited Result - Final * High Sensitivity Troponin I (11/09/2024 9:46 PM EDT) Only the most recent of2 resultswithin the time period is included. Pathologist [facility] TROPONIN I HIGH SENSITIVITY <2.7 <3.5 - 35.0 ng/L [facility] Comment:The [facility] high sens itivity Troponin-I results should beused in conjunction with other diagnostic information suchas ECG, clinical observations and information, and patientsymptoms to aid in the diagnosis of AR. 11/09/2024 9:46 PM EDT 11/09/2024 9:49 PM EDT Generic External Data Provider LAB BLOOD ORDERAB LES Final Result [facility] [address] [place] [phone] * SARS-CoV-2 RNA, Influenza A/B, and RSV RNA, Ql NAAT (11/09/2024 9:46 PM EDT) Only the most recent of2 resultswithin the time period is included. Pathologist [facility] Influenza A PCR NEGATIVE Negative [facility] Influenza B PCR NEGATIVE Negative [facility] Resp Syncy Virus RNA Qual PCR NEGATIVE Negative [facility] SARS COV2 PCR NEGATIVE Negative [facility] Comment:All test results mus t be correlated with clinical findings.Negative results do not preclude SARS-CoV2, influenza Avirus, influenza B virus and/or RSV infectionand should not be used as the sole basis for treatment orother patient management decisions. Negative results must becombined with clinical observations, patient history, andepidemiological information.This test has not been evaluated for monitoring treatment ofinfection.This test has been authorized by the FDA under an EmergencyUse Authorization (EUA) for use by authorized laboratories.Testing performed on the [employer] GeneXpert utilizingreal-time RT-PCR.All SARS CoV2 and positive influenza A/B results arereported to [facility]. 11/09/2024 9:46 PM EDT 11/09/2024 9:49 PM EDT Generic External Data Provider LAB MICROBIOLOGY - GENERAL ORDERABLES Final Result Performing Organization Address [facility] Co de Phone Number [facility] [address] [place] [phone] * TSH (11/09/2024 9:46 PM EDT) Pathologist [facility] Thyroid Stimulating Hormone 0.98 0.32 - 4.0 uIU/mL [facility] Comment:TSH 3rd Generation ( [facility]) 11/09/2024 9:46 PM EDT 11/09/2024 9:49 PM EDT Generic External Data Provider LAB BLOOD ORDERAB LES Final Result Performing Organization Address [facility] Co de Phone Number [facility] [address] [place] [phone] * (ABNORMAL) Comprehensive Metabolic Panel (11/09/2024 9:46 PM EDT) Only the most recent of3 resultswithin the time period is included. Pathologist [facility] Sodium 139 135 - 145 mmol/L [facility] Potassium 3.8 3.3 - 5.1 mmol/L [facility] Chloride 105 96 - 108 mmol/L [facility] Carbon Dioxide 26 22 - 29 mmol/L [facility] Anion Gap 12 12 - 20 [facility] Urea Nitrogen (BUN) 18(H) 9 - 16 mg/dL [facility] Creatinine, Serum 0.90 0.5 - 1.4 mg/dL [facility] Creatinine Clr Calc Pharmacy 103.7 [facility] Comment:eGFR (calculated fro m the MDRD study equation) and eCrCl(calculated from the Cockcroft-Gault equation) are based ondifferent parameters and may not yield comparable results.If eCrCl result is absurd, please check patient'sheight/weight. Estimated Glomerular Filt Rate >60 [facility] Comment:Chronic Kidney Disea se: Estimated GFR < 60 mL/min/1.76a5Toapxr Kidney Disease: Estimated GFR < 15 mL/min/1.73m2 Glucose 106 60 - 115 mg/dL [facility] Calcium 9.6 8.4 - 10.2 mg/dL [facility] Bilirubin, Total 0.6 0.0 - 1.0 mg/dL [facility] Aspartate Amino Transferase 22 5 - 37 U/L [facility] Alanine Aminotransferase 26 0 - 40 U/L [facility] Total Protein 6.8 6.5 - 8.0 g/dL [facility] Albumin Level 4.4 3.5 - 5.0 g/dL [facility] Alkaline Phosphatase 56 39 - 117 U/L [facility] 11/09/2024 9:46 PM EDT 11/09/2024 9:49 PM EDT us Generic External Data Provider LAB BLOOD ORDERAB LES Final Result [facility] [address] [place] [phone] * Magnesium (10/14/2024 7:36 AM EDT) Only the most recent of2 resultswithin the time period is included. Magnesium 1.9 1.6 - 2.6 mg/dL [facility] 10/14/2024 7:36 AM EDT 10/14/2024 7:38 AM EDT us Generic External Data Provider LAB BLOOD ORDERAB LES Final Result Performing Organization Address [facility] de Phone Number [facility] [address] [place] [phone] * Lipase (10/14/2024 7:36 AM EDT) Only the most recent of2 resultswithin the time period is included. Lipase 11 8 - 78 U/L [facility] 10/14/2024 7:36 AM EDT 10/14/2024 7:38 AM EDT Generic External Data Provider LAB BLOOD ORDERAB LES Final Result Performing Organization Address [facility] de Phone Number [facility] [address] [place] [phone] * CT Abdomen Pelvis w/ Contrast (10/13/2024 12:06 PM EDT) Anatomical Region Laterality Modality Body, Pelvis, Abdomen Computed T omography 10/13/2024 12:0 6 PM EDT Narrative 10/13/2024 12:08 PM EDT ? [facility] ?[address] ?[place] [address] ? CT Scan Report ? Signed ? Patient: PhilipAndrey aviles ?MR#: [id number] ?? 558 ? : 2000 ?Acct:[id number] ? Age/Sex: 23 / M ?ADM Date: 10/13/24 ? Loc: HO.ED ? Attending Dr: ? Ordering Physician: Judy Serna PA-C ?? Date of Service: 10/13/24 ?? Procedure(s): CT abdomen pelvis w IV con ?? Accession Number(s): [id number] ? cc: Haile Zavaleta MD; Judy Serna PA-C ? Report Number: ?? [id number]: Total DLP = ??351.00 mGy-cm ? CLINICAL HISTORY: tender RLQ with peritoneal signs ? CT abdomen and pelvis with contrast ? Comparison: None ? Findings: ?? No consolidation or effusion. ?? Appendix is normal, reference coronal image 24. ?? No bowel obstruction or free air. There is diverticulosis without ?? diverticulitis. ?? Gas and fluid seen throughout nondistended small and large bowel. Mild ?? engorgement of the vasa recta. ?? The liver, spleen, gallbladder, adrenal glands and pancreas are ?? unremarkable. ?? Kidneys, ureters and bladder appear within normal limits. ?? No acute osseous finding. ? Impression: ?? Normal appendix. ?? Findings suggest mild enteritis ? This document has been electronically signed by: Reginald Maddox MD on ?? 10/13/2024 12:06:38 ? Dictated By: ?Reginald Maddox MD ? Signed By: ?<Electronically signed by Reginald Maddox MD in OV> ? 10/13/24 1208 ? DD/ 1206 ? TD/TT: 10/13/24 1206 ? Scrap Burner: ? Procedure Note Donleoter, Image - 10/13/[address] [place] [address] [address] Scan Report Signed Patient: Andrey PalaciosMR#: [id number] 558 : 2000Acct:[id number] Age/Sex: Date: 10/13/24 Loc: HO.ED Attending Dr: Ordering Physician: Judy Serna PA-C Date of Service: 10/13/24 Procedure(s): CT abdomen pelvis w IV con Accession Number(s): [id number] cc: Haile Zavaleta MD; Judy Serna PA-C Report Number: [id number]: Total DLP = 351.00 mGy-cm CLINICAL HISTORY: tender RLQ with peritoneal signs CT abdomen and pelvis with contrast Comparison: None Findings: No consolidation or effusion. Appendix is normal, reference coronal image 24. No bowel obstruction or free air. There is diverticulosis without diverticulitis. Gas and fluid seen throughout nondistended small and large bowel. Mild engorgement of the vasa recta. The liver, spleen, gallbladder, adrenal glands and pancreas are unremarkable. Kidneys, ureters and bladder appear within normal limits. No acute osseous finding. Impression: Normal appendix. Findings suggest mild enteritis This document has been electronically signed by: Reginald Maddox MD on 10/13/2024 12:06:38 Dictated By: Reginald Maddox MD Signed By: <Electronically signed by Reginald Maddox MD in OV> 10/13/24 1208 DD/ 1206 TD/TT: 10/13/24 1206 Scrap Burner: [facility] External Provider IMG CT PROCEDURES Edited Result - Final * (ABNORMAL) Urinalysis w/reflex microscopic (10/13/2024 11:43 AM EDT) Color Urine Yellow [facility] Appearance Urine Clear [facility] PH 8.0 5.0 - 9.0 [facility] Glucose Urine UA Negative Negative mg/dL [facility] Urine Blood Negative Negative [facility] Specific [place] - Urine >=1.030(H) 1.005 - 1.025 [facility] Urine Protein Negative Neg-Trace mg/dL [facility] Urine Ketones Negative Negative mg/dL [facility] Nitrite Urine Negative Negative [facility] Leukocyte Esterase Urine Negative Negative [facility] 10/13/2024 11:4 3 AM EDT 10/13/2024 11:46 AM EDT Narrative [facility] - 10/13/2024 11:54 AM EDT Urine, Clean Catch Generic External Data Provider LAB URINE ORDERAB LES Final Result [facility] [address] [place] [phone] * Hepatic Function Panel (10/13/2024 10:09 AM EDT) Bilirubin, Direct 0.2 0.0 - 0.5 mg/dL [facility] 10/13/2024 10:0 9 AM EDT 10/13/2024 10:12 AM EDT us Generic External Data Provider LAB BLOOD ORDERAB LES Final Result Performing Organization Address [facility]/ZIP Co de Phone Number [facility] [address] [place] [phone] * TSH W/Reflex to FT4 (09/27/2024 2:04 PM EDT) TSH reflex Free T4 0.43 0.32 - 4.0 uIU/mL [facility] Blood Venous blood specimen / Unknown 09/27/2024 2:04 PM EDT 09/27/2024 2:44 PM EDT us Keri Candelario MD LAB BLOOD ORDERABLES Final Result Performing Organization Address [facility] Co de Phone Number [facility] [address] [place] [phone] * (ABNORMAL) Basic Metabolic Panel (09/27/2024 2:04 PM EDT) Sodium 142 135 - 145 mmol/L [facility] Potassium 3.4 3.3 - 5.1 mmol/L [facility] Chloride 106 96 - 108 mmol/L [facility] Carbon Dioxide 28 22 - 29 mmol/L [facility] Anion Gap 11(L) 12 - 20 [facility] Urea Nitrogen (BUN) 18(H) 9 - 16 mg/dL [facility] Creatinine, Serum 1.00 0.5 - 1.4 mg/dL [facility] Estimated Glomerular Filt Rate >60 [facility] Comment:Chronic Kidney Disea se: Estimated GFR < 60 mL/min/1.66z6Fgrihr Kidney Disease: Estimated GFR < 15 mL/min/1.73m2 Glucose 79 60 - 115 mg/dL [facility] Calcium 10.1 8.4 - 10.2 mg/dL [facility] Blood Venous blood specimen / Unknown 09/27/2024 2:04 PM EDT 09/27/2024 2:44 PM EDT us Keri Candelario MD LAB BLOOD ORDERABLES Final Result Performing Organization Address [facility] Co de Phone Number [facility] [address] [place] [phone] * (ABNORMAL) Lipid Panel, Standard (06/04/2024 10:43 AM EST) Triglycerides 105 <150 mg/dL [facility] Comment:Desirable Triglyceri de: less than 150 mg/dLBorderline High Triglyceride 150-199 mg/dLHigh Triglyceride: 200-499 mg/dLVery High Triglyceride: greater than or equal to 5OO mg/dL Cholesterol 184 <200 mg/dL [facility] Comment:Desirable Cholestero l: less than 200 mg/dLBorderline High Cholesterol: 200-239 mg/dLHigh Cholesterol: greater than 239 mg/dL LDL Cholesterol Calculated 112(H) <100 mg/dL [facility] Comment:Desirable LDL: less than 100 mg/dLNear Optimal/Above Optimal LDL: 110- 129 mg/dLBorderline High LDL: 130-159 mg/dLHigh LDL: 160-189 mg/dLVery High LDL: greater than or equal to 190 mg/dL HDL Cholesterol 51 >40 mg/dL [facility] Comment:Desirable HDL: great er than 40 mg/dL Note: This HDL assay may give artificially low results in patients with liver disease. Blood Venous blood specimen / Unknown 06/04/2024 10:43 AM EST 06/04/2024 2:11 PM EST us Haile Simon MD LAB BLOOD ORDERABL ES Final Result Performing Organization Address City/[facility]/ZIP Co de Phone Number [facility] [address] [place] [phone] from Last 3 Months or Most Recently Relevant to Health Maintenance Insurance [facility] , [address] [place] [address] Care Teams Factory Process Workers Relationship Specialty Start Date End Date Haile Zavaleta MD [address] [place] [phone] PCP - General Internal Medicine 04/11/23
--- OUTSIDE RECORDS SUMMARY | 2024-11-17 02:53 | XMS_ITS | Encounter Summary ---
Author Organization [employer] Address [address] [facility] 7t [place] [address] Care Team Providers Care College Hire Name Role Phone Haile Zavaleta MD Primary Care Prov ider Reason for Visit * Reason Onset Date Comments Appointment Request 11/12/2024 Nurse Triage 11/12/2024 Encounter Details Date Type Department Care Team ([facility] st Contact Info) Description 11/12/2024 Telephone [facility] [address] [place] [address] Haile Zavaleta MD [address] [place] [phone] Appointment Request; Nurse Triage Social History Tobacco Use Types [...] Encounter - Kasie De Guzman RN - 11/12/2024 10:02 AM EDT Per chart review , pt seen at [facility] on 11/09/24 for chest pain. CXR and EKG wnl. Pt instructed to have PCP follow up if sx continue. Call returned to Andrey Palacios to triage below. Reports having right hip /flank pain x weeks ago . Per pt urine is blood tinge. Pt having urinary frequency. Per pt having intermittent lower abdominal pain. Pt Denies any N/V or fever. Pt also having some straining and burning. Pt advised of disposition, agrees to seek WIC today. Reviewed WIC operating hours and that wait times vary. Reviewed home care advise, ER precautions and reasons to call back. Protocol Used: Flank Pain (Adult) Protocol-Based Disposition: Go to ED/UCC Now (or to Office with PCP Approval) Positive Triage Question: * Blood in urine (red, pink, or tea-colored) * All higher-acuity triage questions were negative Care Advice Discussed: * Reassurance and Education - Flank Pain From Minor Injury * Reasons To Call Back - Fever over 100.4 F (38.0 C) - Burning with urination or blood in urine - You become worse * Telephone Encounter - Jocelynn Sharp - 11/12/2024 9:22 AM EDT Tc from pt requesting urgent appt with PCP Symptom: Hip Pain - Not From Injury Outcome: Schedule an appointment to be seen within 24 hours Reason: Caller denied all higher acuity questions The caller accepted this outcome. documented in this encounter Plan of Treatment Upcoming Encounters Date Type Department Care Team (Late st Contact Info) Description 11/28/2024 11:15 AM EDT Telemedicine [facility]S [address] [place] [address] Haile Zavaleta MD [address] [place] [address] documented as of this encounter Visit Diagnoses Not on filedocumented in this encounter Additional Health Concerns Assessment Noted Time PHQ-9 Depression Total Score: 0 05/07/20 24 2:29 PM EDT documented as of this encounter Care Teams College Hire Relationship Specialty Start Date End Date Haile Zavaleta MD [address] [place] [address] PCP - General Internal Medicine 04/11/23 documented as of this encounter
--- OUTSIDE RECORDS SUMMARY | 2024-11-17 02:53 | XMS_ITS | Encounter Summary ---
Author Organization [employer] Address [address] [facility] 7t [place] [address] Care Team Providers Care Milieu Manager Name Role Phone Haile Zavaleta MD Primary Care Prov ider Reason for Visit * Reason Onset Date Comments New patient 03/31/2023 Encounter Details Date Type Department Care Team ([facility] st Contact Info) Description 03/31/2023 Telephone [facility] MED[facility]INE [address] [place] [address] Nas Hopper MD [address] [place] [address] New patient Social History Tobacco Use Types [...] Missy Ellison - 03/31/2023 4:21 PM EDT SARAH Preciado called pt to Offer PATIENT INTAKE REPRESENTATIVE appt. Pt demographics and insurance information were verified. Pt reports the following medical conditions: Anxiety Pt is currently taking medication: No Pt given PATIENT INTAKE REPRESENTATIVE appt with Dr. Dacosta on 04/11/2023 @ 9 am. Pt will be sent appt reminder card and medical release form and agrees to complete and to return to medical records prior to PATIENT INTAKE REPRESENTATIVE appt. documented in this encounter Plan of Treatment Upcoming Encounters Date Type Department Care Team (Late st Contact Info) Description 11/28/2024 11:15 AM EDT Telemedicine [facility] MED & PEDS [address] [place] [address] Haile Zavaleta MD [address] [place] [address] documented as of this encounter Visit Diagnoses Not on filedocumented in this encounter Care Teams Milieu Manager Relationship Specialty Start Date End Date Haile Zavaleta MD [address] [place] [address] PCP - General Internal Medicine 04/11/23 documented as of this encounter
--- OUTSIDE RECORDS SUMMARY | 2024-11-17 02:53 | XMS_ITS | Clinical Summary ---
Author Organization [facility] Address [address] [place] [address] Care Team Providers Care Waste Removalist Name Role Phone Unavailable Primary Care Provider Unavailabl e Allergies No known active allergies Medications No known medications Active Problems Problem Noted Date Diagnosed Date Anxiety 03/03/2023 History of ADHD 03/03/2023 Social History Tobacco Use Types Packs/Day Years Used Date Smoking Tobacco: Never Assessed Sex and Gender Information Value Date Recorded Sex Assigned at Male 03/03/2023 11:23 AM EDT Legal Sex Male 10:44 AM EDT Gender Identity Male 03/03/2023 11:23 [...] on patient's age to complete this topic Insurance [facility]
[2024-11-17 03:07] LABS: Alanine Aminotransferase 27 U/L (0-40); Albumin Level 4.5 g/dL (3.5-5.0); Alkaline Phosphatase 57 U/L (39-117); Anion Gap 13 (12-20); Aspartate Amino Transferase 21 U/L (5-37); Bilirubin Direct 0.1 mg/dL (0.0-0.5); Bilirubin Total 0.4 mg/dL (0.0-1.0); Blood Urea Nitrogen 15 mg/dL (9-16); Calcium 9.5 mg/dL (8.4-10.2); Carbon Dioxide 26 mmol/L (22-29); Chloride 106 mmol/L (96-108); Creatinine Clr Calc Pharmacy 110.6; Estimated Glomerular Filt Rate > 60; Glucose Random 111 mg/dL (60-115); Lipase 13 U/L (8-78); Potassium 4.1 mmol/L (3.3-5.1); Sodium 141 mmol/L (135-145); Total Protein 7.1 g/dL (6.5-8.0)
[2024-11-17 04:26] VITALS: BP 115/67; PULSE 81; RESP 16; TEMP 36.6; O2SAT 99
--- NOTE | 2024-11-17 04:29 | ED.ABDPAIN ---
HPI - Abdominal Pain General Chief Complaint: Abdominal Pain Stated Complaint: abd pain Time Seen by Provider: 11/17/24 04:22 Source: patient Mode of arrival: ambulatory Limitations: no limitations History of Present Illness ED Provider: Dr. Chelsey Salcido HPI narrative: Patient comes to the emergency room complaining of 2 days of right lower quadrant pain and periumbilical pain. Also, patient comes in complaining of multiple complaints, including uneven radial pulses on palpation. Of note, patient had a CAT scan done 4 days ago for left lower quadrant pain. Patient states now that the pain is in the right lower quadrant periumbilical area. Patient complaining of nausea, no vomiting or diarrhea Related Data Home Medications ?Medication ?Instructions ?Recorded ?Confirmed albuterol sulfate 90 mcg/actuation inhalation 10/13/24 aerosol inhaler hydroxyzine HCl 25 mg tablet 25 mg PO QID PRN Anxiety 10/13/24 10/13/24 Previous Rx's ?Medication ?Instructions ?Recorded docusate sodium 100 mg capsule 100 mg PO BID #60 caps 10/13/24 (Colace) polyethylene glycol 3350 17 17 g PO DAILY #119 grams 10/13/24 gram/dose oral powder (Miralax) Allergies Allergy/AdvReac Type Severity Reaction Status Date / Time No Known Allergies Allergy Verified 11/17/24 02:26 Review of Systems Review of Systems Constitutional : No Weight loss, No Fever, No Chills, No Night Sweats, No Fatigue, No Malaise ENT/Mouth : No Hearing loss, No Ear Pain, No Nasal Congestion, No Sinus Pain, No Hoarseness, No sore throat, No Rhinorrhea, No Swallowing Difficulty Eyes: No Eye Pain, No Swelling, No Redness, No Foreign Body, No Discharge, No Vision Changes Cardiovascular : No Chest Pain, No SOB, No Dyspnea on Exertion, No Orthopnea, No Edema, No Palpitations Respiratory : No Cough, No Sputum, No Wheezing, No Smoke Exposure, No Dyspnea Gastrointestinal : Complaining of Nausea, No Vomiting, No Diarrhea, No Constipation, complaining of abdominal pain in the periumbilical area, right lower quadrant Genitourinary : no irregular bleeding, No Dysuria, No Urinary Frequency, No Hematuria, No Urinary Incontinence, No Urgency, No Flank Pain, No Urinary Flow Changes, No Hesitancy Musculoskeletal : No joint pain, No Myalgias, No Joint Swelling Skin : No Skin Lesions, No rash Neuro : No Weakness, No Numbness, No Paresthesias, No Loss of Consciousness, No Dizziness, No Headache Psych : No Anxiety/Panic, No Depression, No SI/HI/AH/VH, No Social Issues, Heme/Lymph: No Bruising, No Bleeding,No Lymphadenopathy Endocrine : No Polyuria, No Polydipsia, No Temperature Intolerance [facility] Past Medical History Medical History Nicotine dependence due to vaping tobacco product Social History Social History Substance Use Type: Marijuana Advance Directives: No Advance Directives Information Provided: Yes Do you have a plan to hurt others: No Plan Physical Exam ED Vital Signs: Vital Signs - 24 hr 11/17/24 02:21 11/17/24 04:26 Temperature 98.3 F 98 F Pulse Rate 87 81 Respiratory Rate 16 16 Blood Pressure 136/70 115/67 Pulse Oximetry 97 99 Oxygen Delivery Method Room Air Room Air BMI result Body Mass Index 19.3 Const Other: Appearance: Alert. Oriented X3. No acute distress. Eyes: Pupils equal, round and reactive to light. ENT: Pharynx normal. Neck: Normal inspection. Neck supple. No lymph nodes noted. No crepitus CVS: Normal heart rate and rhythm. Pulses normal. Normal S1 and S2 Respiratory: No respiratory distress. Breath sounds normal. No Wheezing. No rales Abdomen: Soft and nontender. No rigidity. No distention. Skin: Skin warm and dry. Normal skin color. Normal skin turgor. Extremities: No lower extremity edema. No Lacerations. No Rash Neuro: Oriented X 3. No motor deficit. No sensory deficit. Moving all extremities. No slurred speech. CN 2 through 12 grossly intact Psych: calm, cooperative, very anxious Medical Decision Making Medical Decision Making [facility] Narrative: My interpretation of labs: No significant abnormality patient's auditory chemistry, normal LFTs and lipase, urinalysis negative CT scan does not show any acute abnormality I reviewed patient's past ED visits. Patient's seems to have significant anxiety about his health. Differential Diagnosis Differential Diagnoses: The differential diagnosis associated with the presentation includes (Appendicitis, pancreatitis, SBO, anxiety) Admission/Observation Consideration of admission/observation: Escalation of care including admission/observation considered (Given patient's recurrent symptoms, observation was considered) Lab Data [facility] Lab Attestation statement: I reviewed the patient's lab results. 11/17/24 02:39 11/17/24 02:39 Labs: Lab Results 11/17/24 11/17/24 11/17/24 Range/Units 02:34 02:39 02:43 WBC 6.6 (4.8-10.8) X10*3/uL RBC 4.83 (4.60-5.80) X10*6/uL Hgb 14.1 (14.0-18.0) g/dl Hct 40.2 L (42.0-52.0) % MCV 83.2 (80.0-98.0) fL MCH 29.2 (27.0-33.0) pg MCHC 35.1 (31.0-36.0) g/dl RDW 11.3 (11.0-16.0) % Plt Count 271 (160-400) X10*3/uL MPV 8.4 L (9.4-12.4) fL Immature Gran % (Auto) 0.2 (0.0-0.4) % Neut % (Auto) 48.6 (45-73) % Lymph % (Auto) 36.2 (20-40) % [place] % (Auto) 11.8 H (2-11) % Eos % (Auto) 2.6 (0-4) % Baso % (Auto) 0.6 (0-2) % Lymph # (Auto) 2.4 (1.2-4.9) X10*3/uL [place] # (Auto) 0.8 (0.1-1.2) X10*3/uL Eos # (Auto) 0.2 (0.0-0.4) X10*3/uL Baso # (Auto) 0.0 (0.0-0.2) X10*3/uL Abs Immat Gran (auto) 0.01 (0.00-0.03) X10*3/uL Absolute Neuts (auto) 3.2 (2.0-8.3) x10*3/uL Absolute Nucleated RBC 0.000 (0.0-0.012) X10*3/uL Nucleated RBC % (auto) 0.0 (0.0-0.2) /100WBC Sodium 141 (135-145) mmol/L Potassium 4.1 (3.3-5.1) mmol/L Chloride 106 (96-108) mmol/L Carbon Dioxide 26 (22-29) mmol/L Anion Gap 13 (12-20) BUN 15 (9-16) mg/dL Creatinine 0.88 (0.5-1.4) mg/dL Estim Creat Clear Calc 110.6 Estimated GFR > 60 POC Glucose 101 (60-115) mg/dL Random Glucose 111 (60-115) mg/dL Calcium 9.5 (8.4-10.2) mg/dL Total Bilirubin 0.4 (0.0-1.0) mg/dL Direct Bilirubin 0.1 (0.0-0.5) mg/dL AST 21 (5-37) U/L ALT 27 (0-40) U/L Alkaline Phosphatase 57 (39-117) U/L Total Protein 7.1 (6.5-8.0) g/dL Albumin 4.5 (3.5-5.0) g/dL Lipase 13 (8-78) U/L Urine Color Yellow Urine Appearance Clear Urine pH 8.0 (5.0-9.0) Ur Specific [place] 1.020 (1.005-1.025) Urine Protein Trace (Neg-Trace) mg/dL Urine Glucose (UA) Negative (Negative) mg/dL Urine Ketones Trace (Negative) mg/dL Urine Blood Negative (Negative) Urine Nitrite Negative (Negative) Ur Leukocyte Esterase Small (1+) H (Negative) Urine RBC 0-2 (0-2) /HPF Urine WBC 6-10 H (0-5) /HPF Ur Squamous Epith Cells 0-2 (0-2) /HPF Urine Bacteria None Seen (None Seen) Hyaline Casts 0-2 (0-2) /LPF Independent Interpretation I performed an independent interpretation of an: CT Scan Radiology Impression Discussion of test interpretation with radiology: I have reviewed the radiologist's reading. Radiologist Impression: FINDINGS: Lung bases are unremarkable. A few tiny subcentimeter low-attenuation lesions are again noted within the liver which are too small to characterize. Gallbladder is unremarkable. No visible stone. No pericholecystic inflammation. Stomach is underdistended which precludes accurate assessment. No CT evidence of acute pancreatitis. Spleen and adrenal glands are unremarkable. Both kidneys are unremarkable. No hydronephrosis or obstructing stone. Urinary bladder is not optimally distended. Abdominal aorta is normal in caliber, without evidence of an aneurysm or dissection. No evidence of a bowel obstruction or free air. No pericolonic inflammation. Appendix is visualized and there is no evidence of acute appendicitis. No lymphadenopathy or loculated fluid collection. No bowel containing hernia. The bone windows demonstrate no acute abnormalities. IMPRESSION: 1. No acute disease. No evidence of a bowel obstruction or free air. No pericolonic inflammation. Appendix is visualized and there is no evidence of acute appendicitis. 2. No hydronephrosis or obstructing stone. 3. Additional findings are detailed above. Medications Administered Discontinued Medications Generic Name Dose Route Start Last Admin Trade Name Freq PRN Reason Stop Dose Admin Iohexol 85 ml 11/17/24 04:42 11/17/24 04:43 Iohexol 350 Mg/Ml 100 Ml Infus..Btl IV 11/17/24 04:43 85 ml ONCE ONE Administration Critical Care Time Critical Care Time Critical Care Time: Yes Total Critical Care Time: 35 Attestation: I have personally provided critical care time. Time includes review of lab data, radiology results, discussion with consultants, and monitoring for potential decompensation. Intervention performed as documented. Discharge Plan Discharge Clinical Impression: Anxiety about health, Abdominal pain Patient Disposition: Home, Self-Care Instructions: Abdominal Pain (ED), Anxiety (ED) Additional Instructions: Please follow-up with your primary care physician tomorrow. If you have any worsening or new symptoms, please return to the emergency room or call 911 Prescriptions: No Action albuterol sulfate 90 mcg/actuation HFA aerosol inhaler inhalation hydroxyzine HCl 25 mg Tablet 25 mg PO QID PRN (Reason: Anxiety) polyethylene glycol 3350 [Miralax] 17 gram/dose powder 17 g PO DAILY Qty: 119 0RF docusate sodium [Colace] 100 mg capsule 100 mg PO BID Qty: 60 0RF Print Language: Indian
[2024-11-17] MEDS: iohexoL 350 MG/ML 100 ML INFUS..BTL 85 ML IV (04:43)
[2024-11-17 05:42] VITALS: BP 115/62; PULSE 70; RESP 16; TEMP 36.2; O2SAT 98
[2024-11-17 05:58] VITALS: BP 115/62; PULSE 70; RESP 16; TEMP 36.2; O2SAT 98
== END 2024-11-17 06:05 | disposition home or self-care (01) ==
PROVIDERS: Emergency Provider Emergency Medicine; PCP Internal Medicine
DX: F41.9 Anxiety disorder, unspecified (principal); R10.31 Right lower quadrant pain; R10.33 Periumbilical pain; Z79.899 Other long term (current) drug therapy
CPT/HCPCS: 36415; 74177; 80053; 80076; 81001; 82248; 82947; 83690; 85025; 87086; 99284; Q9967

== ENCOUNTER → 2024-11-17 04:28 | Outpatient (BNV) | payer OTHER, SELFPAY | PROVIDERS: Emergency Provider Emergency Medicine; PCP Internal Medicine; Visit Provider Radiology Diagnostic Radiology | DX: R10.31 Right lower quadrant pain (principal); R10.33 Periumbilical pain | CPT/HCPCS: 74177 ==

== ENCOUNTER 2025-07-07 11:52 | Outpatient (REF) | payer OTHER, SELFPAY ==
--- OUTSIDE RECORDS SUMMARY | 2025-07-07 11:15 | XMS_ITS | Encounter Summary ---
Author Organization [employer] Address [address] [facility] 7t [place] [address] Care Team Providers Care Linotype Mechanic Name Role Phone Haile Zavaleta MD Primary Care Prov ider Encounter Details Date Type Department Care Team ([facility] st Contact Info) Description 07/07/2025 11:15 AM EST Office Visit [facility] MED & PEDS [address] [place], [place] [id number] Keri Candelario MD [address] [place] [address] Sinus congestion (Primary Dx); Pleuritic chest pain Social History Tobacco Use Types Packs/Day Years [...] Sign Reading Time Taken Comments Blood Pressure 129/74 07/07/2025 11:11 AM EST Pulse 67 07/07/2025 11:11 AM EST Temperature 36.8 C (98.2 F) 07/07/2025 11:11 AM EST Respiratory Rate 20 07/07/2025 11:11 AM EST Oxygen Saturation 96% 07/07/2025 11:11 AM EST Inhaled Oxygen Concentration - - Weight 60.8 kg (134 lb) 07/07/2025 11:11 AM EST Height 177.8 cm (5' 10 ) 07/07/2025 11:11 AM EST Body Mass Index 19.23 07/07/2025 11:11 AM EST documented in this encounter Progress Notes * Keri Candelario MD - 07/07/2025 11:15 AM EST SUBJECTIVE Andrey Palacios is a 24 y.o. adult who presents for No chief complaint on file.. 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 HENT: Positive for congestion. Respiratory: Positive for shortness of breath. Gastrointestinal: Negative for anal bleeding and blood in stool. Genitourinary: Negative for enuresis, flank pain and frequency. OBJECTIVE Vitals: 07/07/25 1111 BP: 129/74 BP Location: Left arm Patient Position: Sitting BP Cuff Size: Adult Pulse: 67 Resp: 20 Temp: 98.2 ??F (36.8 ??C) TempSrc: Oral SpO2: 96% Weight: 134 lb (60.8 kg) Height: 5' 10 (1.778 m) Physical Exam Constitutional: General: He is not in acute distress. Appearance: Normal appearance. He is not ill-appearing, toxic-appearing or diaphoretic. HENT: Nose: Congestion and rhinorrhea present. Cardiovascular: Rate and Rhythm: Normal rate. Pulmonary: Effort: Pulmonary effort is normal. Neurological: Mental Status: He is alert. Assessment/Plan Assessment/Plan Diagnoses and all orders for this visit: Sinus congestion - CBC auto differential; Future - Sed Rate by Modified Westergren; Future - XR Paranasal Sinuess 3+ Views; Future - fluticasone (Flonase) 50 MCG/ACT nasal spray; Administer 1-2 sprays into each nostril Once per day. Shake gently. Before first use, prime pump. After use, clean tip and replace cap. Pleuritic chest pain - CBC auto differential; Future - Sed Rate by Modified Westergren; Future - XR Chest 2 Views; Future Sinus congestion: - Sinus congestion possibly related to mucus accumulation. - Prescribed nasal spray. Ordered CBC to check for elevated eosinophils, which may indicate allergic sinusitis. Pleuritic chest pain: - Pleuritic chest pain not consistent with asthma. - Ordered chest X-rays to investigate the cause of pleuritic chest pain. This note was drafted using [employer] ([employer]) technology. The patient/patient's guardian has been informed and has consented to the use of this technology: Yes [1] Patient Active Problem List Diagnosis Anxiety Encounter to establish care Encounter for assessment of sexually transmitted disease exposure Physical exam Left arm pain [2] No Known Allergies [3] Current Outpatient Medications on File Prior to Visit Medication Sig Dispense Refill acetic acid-hydrocortisone (Vosol-HC) otic solution Insert saturated wick of cotton into affected ear(s); keep moist for 24 hours by adding 3 to 5 drops every 4 to 6 hours. Remove wick after 24 hoursand instill 5 drops 3 to 4 times daily into affected ear(s). 10 mL 0 albuterol 108 (90 Base) MCG/ACT inhaler Inhale 2 puffs every 6 (six) hours if needed for wheezing. 18 g 1 hydrOXYzine HCl (Atarax) 25 MG tablet Take 1 tablet (25 mg) by mouth every 6 (six) hours if needed for anxiety. 120 tablet 3 nicotine (Nicoderm CQ) 21 MG/24HR patch Place 1 patch on the skin 1 (one) time each day at the sametime. 30 patch 0 psyllium (Metamucil) 58.6 % packet Take 1 packet (3.4 g of fiber) by mouth 2 times daily. Mix and drink with at least 8 ounces of water or juice. 60 packet 11 No current facility-administered medications on file prior to visit. documented in this encounter Plan of Treatment Scheduled Orders Name Type Priority Associated Diagnoses Orde r Schedule CBC auto differential Lab Routine Sinus congestion Pleuritic chest pain Expected: 07/07/2025 (Approximate), Expires: 07/07/2026 Sed Rate by Modified Westergren Lab Routine Sinus congestion Pleuritic chest pain Expected: 07/07/2025, Expires: 07/07/2026 XR Chest 2 Views Imaging Routine Pleuritic chest pain Expected: 07/07/2025, Expires: 07/07/2026 XR Paranasal Sinuess 3+ Views Imaging Routine Sinus congestion Expected: 07/07/2025, Expires: 07/07/2026 documented as of this encounter Visit Diagnoses Diagnosis Sinus congestion- Primary Other diseases of nasal cavity and sinuses Pleuritic chest pain Painful respiration documented in this encounter Additional Health Concerns Assessment Noted Time PHQ-9 Depression Total Score: 0 05/07/20 24 2:29 PM EDT documented as of this encounter Care Teams Linotype Mechanic Relationship Specialty Start Date End Date Haile Zavaleta MD [address] [place] [phone] PCP - General Internal Medicine 04/11/23 documented as of this encounter
--- OUTSIDE RECORDS SUMMARY | 2025-07-07 15:13 | XMS_ITS | Clinical Summary ---
Author Organization [facility] Address [address] [place] [address] Care Team Providers Care Privacy Specialist Name Role Phone Unavailable Primary Care Provider [...] 87 03/03/2023 2:36 PM EDT Temperature 37.1 C (98.7 F) 03/03/2023 2:36 PM EDT Respiratory Rate 16 03/03/2023 2:36 PM EDT [...] - 19+ 3-dose series) 2020 Influenza Vaccine 02/14/2025 COVID-19 Vaccine (1 - 2024-2 6 season) 2025 Pneumococcal Vaccine: Pediat glen (0-5 Years) and At-Risk Patients (6 to 49 Years) Aged Out No longer eligible b ased on patient's age to complete this topic Insurance [facility]
--- OUTSIDE RECORDS SUMMARY | 2025-07-07 15:13 | XMS_ITS | Encounter Summary ---
Author Organization [employer] Address [address] [place] [address] Care Team Providers Care Senior Estimator Name Role Phone Haile Zavaleta MD Primary Care Prov ider Encounter Details Date Type Department Care Team (Latest Contact Info) Description 07/07/2025 Travel Social History Tobacco Use Types Packs/Day [...] as of this encounter Plan of Treatment Not on file documented as of this encounter Visit Diagnoses Not on filedocumented in this encounter Additional Health Concerns Assessment Noted Time PHQ-9 Depression Total Score: 0 05/07/20 24 2:29 PM EDT documented as of this encounter Care Teams Senior Estimator Relationship Specialty Start Date End Date Haile Zavaleta MD [address] [place] [phone] PCP - General Internal Medicine 04/11/23 documented as of this encounter
--- OUTSIDE RECORDS SUMMARY | 2025-07-07 15:13 | XMS_ITS | Encounter Summary ---
Author Organization [employer] Address [address] [facility] [address] [place] [address] Care Team Providers Care Veneer Marker Name Role Phone Haile Zavaleta MD Primary Care Prov ider Reason for Visit * Reason Onset Date Comments New patient 03/31/2023 Encounter Details Date Type Department Care Team ([facility] st Contact Info) Description 03/31/2023 Telephone [facility] [address] [place] [address] Nas Hopper MD [address] [place] [address] New patient Social History Tobacco Use Types [...] EDT SARAH Preciado called pt to Offer SUPERVISING FILM OR VIDEOTAPE EDITOR appt. Pt demographics and insurance information were verified. Pt reports the following medical conditions: Anxiety Pt is currently taking medication: No Pt given SUPERVISING FILM OR VIDEOTAPE EDITOR appt with Dr. Dacosta on 04/11/2023 @ 9 am. Pt will be sent appt reminder card and medical release form and agrees to complete and to return to medical records prior to SUPERVISING FILM OR VIDEOTAPE EDITOR appt. documented in this encounter Plan of Treatment Not on file documented as of this encounter Visit Diagnoses Not on filedocumented in this encounter Care Teams Veneer Marker Relationship Specialty Start Date End Date Haile Zavaleta MD [address] [place] [phone] PCP - General Internal Medicine 04/11/23 documented as of this encounter
--- OUTSIDE RECORDS SUMMARY | 2025-07-07 15:13 | XMS_ITS | Encounter Summary ---
Author Organization [employer] Address [address] [facility] [address] [place] [address] Care Team Providers Care Gauge Operator Name Role Phone Haile Zavaleta MD Primary Care Prov ider Reason for Visit * Reason Onset Date Comments Nurse Triage 07/03/2025 Encounter Details Date Type Department Care Team ([facility] st Contact Info) Description 07/03/2025 Telephone [facility] [address] [place] [address] Haile Zavaleta MD [address] [place] [address] Nurse Triage Social History Tobacco Use Types [...] encounter Miscellaneous Notes * Telephone Encounter - Sveta Cohen RN - 07/03/2025 2:18 PM EST called pt to triage, spoke to pt. pt states he has a deviated septum, making breathing through his nose difficult. pt states when he looks up his nose in the mirror, he can see a bone obstructing thepassage. pt reports mild discomfort, difficulty taking breaths through nose, and increased asthma concerns. pt has inhaler which he uses appropriately but does not help his nose pt denies fever, congestion, and pain back of throat when taking deep breaths. pt requesting appt , no available appt with PCP. given appt Monday with [facility] provider at 11:15 for exam. advised home care: rest, fluids, steam, humidifier, and call back as needed. pt understands and agrees with plan. Protocol Used: No Protocol Available (Adult) Protocol-Based Disposition: See in Office or Video Visit within 2 Weeks Video visit offer not recorded Positive Triage Question: * Nursing judgment * All higher-acuity triage questions were negative. Care Advice Discussed: * Note to Triager - Give Answer * Reasons To Call Back - New symptoms develop - You become worse * Telephone Encounter - Isela López - 07/03/2025 1:43 PM EST Symptom: Breathing Trouble Outcome: Transfer to a nurse or provider NOW! Reason: Struggling for each breath (severe trouble breathing) The caller accepted this outcome. PCP Dr. Dacosta documented in this encounter Plan of Treatment Not on file documented as of this encounter Visit Diagnoses Not on filedocumented in this encounter Additional Health Concerns Assessment Noted Time PHQ-9 Depression Total Score: 0 05/07/20 24 2:29 PM EDT documented as of this encounter Care Teams Gauge Operator Relationship Specialty Start Date End Date Haile Zavaleta MD [address] [place] [phone] PCP - General Internal Medicine 04/11/23 documented as of this encounter
--- OUTSIDE RECORDS SUMMARY | 2025-07-07 15:13 | XMS_ITS ---
Author Name [facility] Organization Unknown Encounters Encounter Type Encounter Reason Primary Diagnosis Location Date Emergency Anxiety disorder, unspecified Anxiety disorder, unspecified [facility] 03/03/2023 Care Team Organization Name Specialty Phone Email Start Date End Da te [facility]) 03/03/2023 03/03/2023 [facility] 03/03/2023
--- OUTSIDE RECORDS SUMMARY | 2025-07-07 15:13 | XMS_ITS | Clinical Summary ---
Author Organization [employer] Address [address] [facility] [address] [place] [address] Care Team Providers Care Solar Sales Representative And Assessor Name Role Phone Haile Zavaleta MD Primary Care Prov ider Allergies No known active allergies Medications * This document contains information received from the source organization and may not represent a complete record from that organization. hydrOXYzine HCl (Atarax) 25 MG tablet Take 1 tablet (25 mg) by mouth every 6 (six) hours if needed for anxiety. 120 tablet 3 08/15/19 25 Active albuterol 108 (90 Base) MCG/ACT inhaler Inhale 2 puffs every 6 (six) hours if needed for wheezing. 18 g 1 08/15/19 25 026 Active psyllium (Metamucil) 58.6 % packet Take 1 packet (3.4 g of fiber) by mouth 2 times daily. Mix and drink with at least 8 ounces of water or juice. 60 packet 11 09/25/19 25 026 Active nicotine (Nicoderm CQ) 21 MG/24HR patchIndicatio ns:Vaping nicotine dependence, non-tobacco product Place 1 patch on the skin 1 (one) time each day at the same time. 30 patch 09/28/19 25 Active acetic acid-hydrocort isone (Vosol-HC) otic solutionIndica tions:Acute swimmer's ear of right side Insert saturated wick of cotton into affected ear(s); keep moist for 24 hours by adding 3 to 5 drops every 4 to 6 hours. Remove wick after 24 hours and instill 5 drops 3 to 4 times daily into affected ear(s). 10 mL 06/17/20 25 Active fluticasone (Flonase) 50 MCG/ACT nasal sprayIndicatio ns:Sinus congestion Administer 1-2 sprays into each nostril Once per day. Shake gently. Before first use, prime pump. After use, clean tip and replace cap. 16 g 2 07/07/20 25 026 Active ciprofloxacin- dexAMETHasone (CiproDEX) otic suspensionIndi cations:Acute swimmer's ear of right side Administer 4 drops into each ear 2 times daily for 10 days. 7.5 mL 06/10/20 25 025 Discontinued Active Problems Problem Noted Date Diagnosed Date [...] Encounters Date Type Department Care Team Description 07/07/2025 11:15 AM EST Office Visit [facility] [address] [place] [address] Keri Candelario MD Sinus congestion (Primary Dx); Pleuritic chest pain 07/07/2025 Travel 07/03/2025 Telephone [facility] [address] [place] [phone] Haile Zavaleta MD Nurse Triage 06/16/2025 Telephone [facility] [address] [place] [address] Haile Zavaleta MD Medication Question 06/10/2025 2:45 PM EST Office Visit [facility] [address] [place] [address] Jean-Paul Pabon CNP Acute swimmer's ear of right side (Primary Dx) 06/10/2025 Travel 06/10/2025 Telephone [facility] [address] [place] [address] Haile Zavaleta MD Nurse Triage from Last [...] Mass Index 19.23 07/07/2025 11:11 AM EST Plan of Treatment Health Maintenance Due Date Last Done Comments Chlamydia and Gonorrhea Screening 2001 HIV Screening 2001 Disability Screening 2001 Alcohol/Substance Use Screening 2013 Family Planning (PISQ) 2016 Meningococcal B Vaccine (1 o f 2 - Standard) 2017 HPV Vaccines (3 - 3-dose series) 08/26/2019 06/03/2019, 05/17/2017 Hepatitis C Screening 12/24/2019 DTaP/Tdap/Td Vaccines (1 - Tdap) 2020 Hepatitis B Vaccines (1 of 3 - 19+ 3-dose series) 2020 Pneumococcal Vaccine: Pediatrics (0 to 5 Years) and At-Risk Patients (6 to 49) Years (1 of 2 - PCV) 2020 COVID-19 Vaccine (2 - 2024-2 6 season) 2025 01/26/2021 Influenza Vaccine (#1) 2025 03/18/2016 SDOH Screening 04/30/2025 04/30/2024 Depression Screening [...] 10:43 AM EST) Triglycerides 105 <150 mg/dL [facility] Comment:Desirable Triglyceri de: less than 150 mg/dLBorderline High Triglyceride 150-199 mg/dLHigh Triglyceride: 200-499 mg/dLVery High Triglyceride: greater than or equal to 5OO mg/dL Cholesterol 184 <200 mg/dL [facility] Comment:Desirable Cholestero l: less than 200 mg/dLBorderline High Cholesterol: 200-239 mg/dLHigh Cholesterol: greater than 239 mg/dL LDL Cholesterol Calculated 112(H) <100 mg/dL [facility] Comment:Desirable LDL: less than 100 mg/dLNear Optimal/Above Optimal LDL: 110- 129 mg/dLBorderline High LDL: 130-159 mg/dLHigh LDL: 160-189 mg/dLVery High LDL: greater than or equal to 190 mg/dL HDL Cholesterol 51 >40 mg/dL [facility] Comment:Desirable HDL: great er than 40 mg/dL Note: This HDL assay may give artificially low results in patients with liver disease. Blood Venous blood specimen / Unknown 06/04/2024 10:43 AM EST 06/04/2024 2:11 PM EST Haile Simon MD LAB BLOOD ORDERABL ES Final Result [facility] [address] [place] [address] [phone] from Last 3 Months or Most Recently Relevant to Health Maintenance Insurance [facility] , [address] [place] [address] Care Teams Solar Sales Representative And Assessor Relationship Specialty Start Date End Date Haile Zavaleta MD [address] [place] [id number] PCP - General Internal Medicine 04/11/23
[2025-07-07 15:20] LABS: MANUAL DIFF FLAG NO
[2025-07-07 15:33] LABS: Hematocrit 45.7 % (42.0-52.0); Hemoglobin 14.6 g/dl (14.0-18.0); Imm Gran Abs Auto 0.01 X10*3/uL (0.00-0.03); Imm Gran Pct Auto 0.2 % (0.0-0.4); Lymphocytes Absolute Auto 2.0 X10*3/uL (1.2-4.9); Mean Corpuscular HGB Conc 31.9 g/dl (31.0-36.0); Mean Corpuscular Hemoglobin 28.8 pg (27.0-33.0); Mean Corpuscular Volume 90.1 fL (80.0-98.0); NRBC Abs Auto 0.000 X10*3/uL (0.0-0.012); NRBC Pct Auto 0.0 /100WBC (0.0-0.2); Platelet Count 309 X10*3/uL (160-400); Red Blood Count 5.07 X10*6/uL (4.60-5.80); White Blood Count 5.1 X10*3/uL (4.8-10.8)
== END 2025-07-07 11:53 | disposition home or self-care (01) ==
LOC: HO.CHCLDS 11:52
PROVIDERS: Visit Provider Internal Medicine
DX: R09.81 Nasal congestion (principal); R07.81 Pleurodynia
CPT/HCPCS: 36415; 85025; 85652